=== PATIENT | male | born 1960 | race Caucasian/White ===

== ENCOUNTER 2020-11-19 14:43 | Outpatient (REF) | payer OTHER, SELFPAY ==
[2020-11-19 15:05] LABS: MANUAL DIFF FLAG NO
[2020-11-19 15:07] LABS: Basophils Absolute Auto 0.1 X10*3/uL (0.0-0.2); Basophils Percent Auto 0.6 % (0-2); Eosinophils Absolute Auto 0.2 X10*3/uL (0.0-0.4); Eosinophils Percent Auto 2.6 % (0-4); Hematocrit 49.5 % (42-52); Hemoglobin 16.6 g/dl (14.0-18.0); Imm Gran Abs Auto 0.03 X10*3/uL (0.00-0.03); Imm Gran Pct Auto 0.4 % (0.0-0.4); Lymphocytes Absolute Auto 1.9 X10*3/uL (1.2-4.9); Lymphocytes Percent Auto 21.9 % (20-40); Mean Corpuscular HGB Conc 33.5 g/dl (31.0-36.0); Mean Corpuscular Hemoglobin 30.9 pg (27.0-33.0); Mean Platelet Volume 11.8 fL (9.4-12.4); Monocytes Absolute Auto 0.7 X10*3/uL (0.1-1.2); Monocytes Percent Auto 7.8 % (2-11); Neutrophils Absolute Auto 5.7 X10*3/uL (2.0-8.3); Neutrophils Percent Auto 66.7 % (45-73); Platelet Count 185 X10*3/uL (160-400); Red Blood Count 5.38 X10*6/uL (4.60-5.80); White Blood Count 8.5 X10*3/uL (4.8-10.8)
[2020-11-19 15:29] LABS: Alanine Aminotransferase 10 U/L (0-40); Albumin Level 4.1 g/dL (3.5-5.0); Alkaline Phosphatase 65 U/L (39-117); Anion Gap 10 (12-20); Aspartate Amino Transferase 14 U/L (5-37); Bilirubin Total 0.9 mg/dL (0.0-1.0); Blood Urea Nitrogen 14 mg/dL (9-16); C Reactive Protein 0.32 mg/dL (< or = 0.50); Calcium 9.9 mg/dL (8.4-10.2); Carbon Dioxide 28 mmol/L (22-29); Chloride 106 mmol/L (96-108); Estimated Glomerular Filt Rate 50; Glucose Random 129 mg/dL (60-115); Potassium 4.1 mmol/L (3.3-5.1); Sodium 140 mmol/L (135-145); Total Protein 6.9 g/dL (6.5-8.0)
== END 2020-11-19 14:44 | disposition home or self-care (01) ==
LOC: HO.LAB 14:43
PROVIDERS: PCP Internal Medicine; Visit Provider Internal Medicine
DX: R10.32 Left lower quadrant pain (principal); I12.9 Hypertensive chronic kidney disease with stage 1 through stage 4 chronic kidney disease, or unspecified chronic kidney disease; N18.9 Chronic kidney disease, unspecified
CPT/HCPCS: 36415; 80053; 85025; 86140

== ENCOUNTER 2021-03-15 13:53 | Outpatient (REF) | payer OTHER, SELFPAY ==
[2021-03-15 14:54] LABS: Binax Internal Control QC Valid; Binax Now Covid-19 Ag Positive (Negative)
== END 2021-03-15 13:54 | disposition home or self-care (01) ==
LOC: HO.LAB 13:53
PROVIDERS: Visit Provider Internal Medicine
DX: Z20.822 Contact with and (suspected) exposure to COVID-19 (principal)
CPT/HCPCS: 36415; C9803

== ENCOUNTER 2021-05-03 16:14 | Outpatient (REF) | payer OTHER, SELFPAY ==
[2021-05-03 16:28] LABS: MANUAL DIFF FLAG NO
[2021-05-03 17:44] LABS: Basophils Absolute Auto 0.1 X10*3/uL (0.0-0.2); Basophils Percent Auto 0.7 % (0-2); Eosinophils Absolute Auto 0.4 X10*3/uL (0.0-0.4); Eosinophils Percent Auto 4.9 % (0-4); Hematocrit 50.3 % (42.0-52.0); Imm Gran Abs Auto 0.03 X10*3/uL (0.00-0.03); Imm Gran Pct Auto 0.3 % (0.0-0.4); Lymphocytes Absolute Auto 2.4 X10*3/uL (1.2-4.9); Lymphocytes Percent Auto 27.9 % (20-40); Mean Corpuscular HGB Conc 33.8 g/dl (31.0-36.0); Mean Corpuscular Hemoglobin 31.6 pg (27.0-33.0); Mean Corpuscular Volume 93.5 fL (80.0-98.0); Mean Platelet Volume 12.2 fL (9.4-12.4); Monocytes Absolute Auto 0.7 X10*3/uL (0.1-1.2); Neutrophils Absolute Auto 5.1 x10*3/uL (2.0-8.3); Neutrophils Percent Auto 58.2 % (45-73); Platelet Count 217 X10*3/uL (160-400); Red Blood Count 5.38 X10*6/uL (4.60-5.80); Red Cell Distribution Width 14.3 % (11.0-16.0); White Blood Count 8.8 X10*3/uL (4.8-10.8)
[2021-05-03 17:52] LABS: D Dimer High Sensitivity 196 NG/ML
[2021-05-03 18:11] LABS: B Type Natriuretic Peptide 35 pg/mL (<100)
[2021-05-03 18:17] LABS: Alanine Aminotransferase 13 U/L (0-40); Albumin Level 4.2 g/dL (3.5-5.0); Alkaline Phosphatase 73 U/L (39-117); Anion Gap 14 (12-20); Aspartate Amino Transferase 19 U/L (5-37); Bilirubin Total 0.9 mg/dL (0.0-1.0); Blood Urea Nitrogen 23 mg/dL (9-16); C Reactive Protein 0.24 mg/dL (< or = 0.50); Calcium 10.1 mg/dL (8.4-10.2); Carbon Dioxide 29 mmol/L (22-29); Chloride 103 mmol/L (96-108); Estimated Glomerular Filt Rate 48; Glucose Random 83 mg/dL (60-115); Potassium 4.3 mmol/L (3.3-5.1); Sodium 142 mmol/L (135-145); Total Protein 7.6 g/dL (6.5-8.0)
== END 2021-05-03 16:15 | disposition home or self-care (01) ==
LOC: HO.LAB 16:14
PROVIDERS: Visit Provider Internal Medicine
DX: R06.02 Shortness of breath (principal); I10 Essential (primary) hypertension; M10.9 Gout, unspecified; Z86.16 Personal history of COVID-19
CPT/HCPCS: 36415; 80053; 83880; 85025; 85379; 86140

== ENCOUNTER 2023-04-29 16:37 | Outpatient (REF) | payer MEDICAID, SELFPAY ==
[2023-04-29 16:51] LABS: MANUAL DIFF FLAG NO
[2023-04-29 17:43] LABS: Basophils Absolute Auto 0.1 X10*3/uL (0.0-0.2); Basophils Percent Auto 0.7 % (0-2); Eosinophils Absolute Auto 0.3 X10*3/uL (0.0-0.4); Eosinophils Percent Auto 2.4 % (0-4); Hemoglobin 16.1 g/dl (14.0-18.0); Imm Gran Abs Auto 0.02 X10*3/uL (0.00-0.03); Imm Gran Pct Auto 0.2 % (0.0-0.4); Lymphocytes Absolute Auto 2.3 X10*3/uL (1.2-4.9); Lymphocytes Percent Auto 21.9 % (20-40); Mean Corpuscular HGB Conc 34.3 g/dl (31.0-36.0); Mean Corpuscular Volume 90.4 fL (80.0-98.0); Mean Platelet Volume 12.3 fL (9.4-12.4); Monocytes Absolute Auto 0.7 X10*3/uL (0.1-1.2); Monocytes Percent Auto 6.9 % (2-11); Neutrophils Absolute Auto 7.1 x10*3/uL (2.0-8.3); Neutrophils Percent Auto 67.9 % (45-73); Platelet Count 211 X10*3/uL (160-400); Red Cell Distribution Width 13.2 % (11.0-16.0); White Blood Count 10.4 X10*3/uL (4.8-10.8)
[2023-04-29 18:13] LABS: Alanine Aminotransferase 10 U/L (0-40); Alkaline Phosphatase 69 U/L (39-117); Anion Gap 12 (12-20); Aspartate Amino Transferase 14 U/L (5-37); Bilirubin Total 0.7 mg/dL (0.0-1.0); Blood Urea Nitrogen 27 mg/dL (9-16); Calcium 9.6 mg/dL (8.4-10.2); Carbon Dioxide 29 mmol/L (22-29); Chloride 106 mmol/L (96-108); Cholesterol 228 mg/dL (<200); Estimated Glomerular Filt Rate 59; Glucose Random 128 mg/dL (60-115); Potassium 3.5 mmol/L (3.3-5.1); Sodium 143 mmol/L (135-145); Total Protein 7.2 g/dL (6.5-8.0)
[2023-04-29 18:29] LABS: Prostate Specific Antigen 2.71 ng/mL (<0.05-4.0)
[2023-04-29 18:35] LABS: Uric Acid 6.3 mg/dL (3.4-7.0)
== END 2023-04-29 16:38 | disposition home or self-care (01) ==
LOC: HO.LAB 16:37
PROVIDERS: PCP Internal Medicine; Visit Provider Internal Medicine
DX: M79.672 Pain in left foot (principal); N18.9 Chronic kidney disease, unspecified; K21.9 Gastro-esophageal reflux disease without esophagitis; Z87.39 Personal history of other diseases of the musculoskeletal system and connective tissue
CPT/HCPCS: 36415; 80053; 82465; 84153; 84550; 85025

== ENCOUNTER 2023-05-13 13:17 | Outpatient (REF) | payer MEDICAID, SELFPAY ==
--- NOTE | ~2023-05-13 | US_ITS ---
EXAMINATION: NONINVASIVE ASSESSMENT OF THE ARTERIES OF THE LEFT LOWER EXTREMITIES INCLUDING BILATERAL LOWER EXTREMITY DUPLEX. CLINICAL INFORMATION: Pain in the left foot COMPARISON: Lower extremity noninvasive exam on 01/20/2019 TECHNIQUE: duplex Doppler techniques with wave form analysis and measurement of velocities in the left common femoral, profunda femoral, superficial femoral, popliteal, tibial and peroneal arteries. The study was performed only at rest. FINDINGS: LEFT LEG: Common femoral artery: 59 cm/s, Multiphasic Profunda femoris artery: 50 cm/s, Multiphasic Superficial femoral artery (proximal): 80 cm/s, Multiphasic Superficial femoral artery (mid): 45 cm/s, Multiphasic Superficial femoral artery (distal): 38 cm/s, Multiphasic Proximal Popliteal artery: 158 cm/s, Multiphasic Mid posterior tibial artery: 46 cm/s, Multiphasic Peroneal artery: 53 cm/s, Multiphasic US/US arterial duplex LE LT IMPRESSION: No hemodynamically significant stenosis in the left lower extremity.
== END 2023-05-13 13:18 | disposition home or self-care (01) ==
LOC: HO.US 13:17
PROVIDERS: PCP Internal Medicine; Visit Provider Internal Medicine
DX: M79.672 Pain in left foot (principal)
CPT/HCPCS: 93926

== ENCOUNTER 2023-08-12 09:18 | Outpatient (REF) | payer MEDICAID, SELFPAY ==
[2023-08-12 09:43] LABS: Estimated Average Glucose 105 mg/dL; Hemoglobin A1c % 5.3 % (<6.0)
[2023-08-12 10:18] LABS: Alanine Aminotransferase 16 U/L (0-40); Albumin Level 4.1 g/dL (3.5-5.0); Alkaline Phosphatase 61 U/L (39-117); Anion Gap 12 (12-20); Aspartate Amino Transferase 17 U/L (5-37); Bilirubin Total 0.6 mg/dL (0.0-1.0); Blood Urea Nitrogen 21 mg/dL (9-16); Calcium 9.6 mg/dL (8.4-10.2); Carbon Dioxide 27 mmol/L (22-29); Chloride 107 mmol/L (96-108); Cholesterol 205 mg/dL (<200); Estimated Glomerular Filt Rate 46; Glucose Fasting 108 mg/dL (60-99); HDL Cholesterol 37 mg/dL (>40); LDL Cholesterol Calculated 137 mg/dL (<100); Potassium 4.3 mmol/L (3.3-5.1); Sodium 142 mmol/L (135-145); Total Protein 7.1 g/dL (6.5-8.0); Triglycerides 159 mg/dL (<150)
== END 2023-08-12 09:19 | disposition home or self-care (01) ==
LOC: HO.LAB 09:18
PROVIDERS: PCP Internal Medicine; Visit Provider Internal Medicine
DX: I12.9 Hypertensive chronic kidney disease with stage 1 through stage 4 chronic kidney disease, or unspecified chronic kidney disease (principal); N18.9 Chronic kidney disease, unspecified; R73.03 Prediabetes; E78.00 Pure hypercholesterolemia, unspecified
CPT/HCPCS: 36415; 80053; 80061; 83036

== ENCOUNTER → 2024-06-16 11:01 | Outpatient (BNVA) | payer MEDICAID, SELFPAY | PROVIDERS: PCP Internal Medicine; Visit Provider Internal Medicine ==

== ENCOUNTER 2024-12-01 11:14 | Outpatient (AMB) | payer MEDICARE, SELFPAY ==
--- OUTSIDE RECORDS SUMMARY | 2023-10-20 06:50 | XMS_ITS ---
Author Organization [facility] Address [address] [place] [address] Care Team Providers Care Range Mechanic Name Role Phone John (RETIRED) Yariel ANDERSON Primary Care Provide Hermes Arias [phone] REASON FOR VISIT Patient presents today for a colon screening Encounters Encounter Location Date Provider Diagnosis [facility] [address] [place] [address] 10/20/2023 Hermes Guzman Plan Of Treatment No Information Progress Notes * AVA GALARZADOB:1960 (64 yo M)Acc No.[id number]:10/20/2023 Progress Notes Patient: AVA KATE Provider: Yazan Guzman MD :1960 A ge:63 Y S ex:Male Date:10/20/2023 [facility] [facility] [facility] Pcp:Yariel Lopez (RETIRED )MD Subjective: * Chief Complaints: * 1 . Patient presents today for a colon screening. * Medical History: Objective: * Vitals: Assessment: Plan: * Treatment: * * The named appointment provid er may or may not be the originator of this progress note, and it is not deemed complete until electronically signed by the appointment provider. Sign off status: Pending * Provider: Yazan Guzman MD Date: 0 10/20/2023 Generated for Coleeni ng/Fajenniferg/eTransmitting on: 0 12/01/2024 04:17 PM EDT
--- OUTSIDE RECORDS SUMMARY | 2024-02-10 11:40 | XMS_ITS ---
Author Organization [facility] Address [address] [place] [address] Care Team Providers Care Electric Meter Technician Name Role Phone John (RETIRED) Yariel ANDERSON Primary Care Provide Hermes Arias [phone] REASON FOR VISIT COLON SCREENING Encounters Encounter Location Date Provider Diagnosis [facility] [address] [place] [address] 02/10/2024 Hermes Guzman Plan Of Treatment No Information Progress Notes * AVA GALARZADOB:1960 (64 yo M)Acc No.[id number]:02/10/2024 Progress Notes Patient: AVA KATE Provider: Yazan Guzman MD :1960 A ge:63 Y S ex:Male Date:02/10/2024 Address: [address] [facility] Pcp:Yariel Lopez (RETIRED )MD Subjective: * Chief Complaints: * 1 . COLON SCREENING. * Medical History: Objective: * Vitals: Assessment: Plan: * Treatment: * * The named appointment provid er may or may not be the originator of this progress note, and it is not deemed complete until electronically signed by the appointment provider. Sign off status: Pending * Provider: Yazan Guzman MD Date: 1 04/12/2023 Generated for Printi ng/Faxing/eTransmitting on: 0 12/01/2024 04:17 PM EDT
--- OUTSIDE RECORDS SUMMARY | 2024-06-02 06:40 | XMS_ITS ---
Author Organization [facility] Address [address] [place] [address] Care Team Providers Care Personal Computer Specialist Name Role Phone John (RETIRED) Yariel ANDERSON Primary Care Provide Hermes Arias [phone] REASON FOR VISIT Patient presents today for a COLON SCREENING Encounters Encounter Location Date Provider Diagnosis [facility] [address] [place] [address] 06/02/2024 Hermes Guzman Plan Of Treatment No Information Progress Notes * AVA GALARZADOB:1960 (64 yo M)Acc No.[id number]:06/02/2024 Progress Notes Patient: AVA KATE Provider: Yazan Guzman MD :1960 A ge:63 Y S ex:Male Date:06/02/2024 [address] [facility] Pcp:Yariel Lopez (RETIRED )MD Subjective: * Chief Complaints: * 1 . Patient presents today for a COLON SCREENING. * Medical History: Objective: * Vitals: Assessment: Plan: * Treatment: * * The named appointment provid er may or may not be the originator of this progress note, and it is not deemed complete until electronically signed by the appointment provider. Sign off status: Pending * Provider: Yazan Guzman MD Date: 0 06/02/2024 Generated for Coleeni ng/Fajenniferg/eTransmitting on: 0 12/01/2024 04:17 PM EDT
--- OUTSIDE RECORDS SUMMARY | 2024-11-03 06:00 | XMS_ITS ---
Author Organization [facility] Address [address] [place] [address] Care Team Providers Care Dextrine Mixer Name Role Phone John (RETIRED) Yariel ANDERSON Primary Care Provide Hermes Arias [phone] REASON FOR VISIT Patient presents today for a COLON SCREENING Encounters Encounter Location Date Provider Diagnosis [facility] [address] [place] [address] 11/03/2024 Hermes Guzman Plan Of Treatment No Information Progress Notes * AVA GALARZADOB:1960 (64 yo M)Acc No.[id number]:11/03/2024 Progress Notes Patient: AVA KATE Provider: Yazan Guzman MD :1960 A ge:64 Y S ex:Male Date:11/03/2024 [address] [facility] Pcp:Yariel Lopez (RETIRED )MD Subjective: * Chief [...] * Provider: Yazan Guzman MD Date: 0 11/03/2024 Generated for Coleeni ng/Fajenniferg/eTransmitting on: 0 12/01/2024 04:17 PM EDT
--- NOTE | 2024-12-01 11:06 | A.OFFPC_ITS ---
Vital Signs 12/01/24 11:20 Height 5 ft 8 in Weight 193 lb BMI 29.3 BP 157/102 H Blood Pressure Location Lt brachial Position Sitting Respiration 18 Pulse 85 Pulse Source Pulse Oximeter Temp 98.2 F Temp Source Temporal Artery Scan Pulse Oximetry (%) 98 Oxygen Delivery Method Room Air Intake Visit Reasons: F/U [facility] (comments) Supervisor Pigment Making Required: No Accompanied by: Self / Same As Patient Allergies codeine Adverse Reaction (Mild, Verified 12/01/24 12:09) Nausea Penicillins Adverse Reaction (Mild, Verified 12/01/24 12:09) Nausea Tobacco use date assessed: 12/01/24 Fall risk assessment: 1 Fall in past year Last assessed Fall Risk: 12/01/24 Dental Screening Dental Screen Date: 12/01/24 Did you have a dental visit in the last 12 months?: Yes Did you have a dental problem in the last 6 months where you did not have access to dental care?: No Was dental information given to patient?: Patient has dentist HPI HPI Comments History of Present Illness Details The patient is a 64-year-old male presenting with symptoms suggestive of a transient ischemic attack (TIA)/stroke. The episode occurred a few weeks ago when he awoke feeling disoriented, a condition he describes as unlike any disorientation he had experienced previously. During this episode, his left arm became non-functional; he was unable to move or control it. This paralysis lasted for approximately two to three hours before resolving spontaneously. Since this episode, the patient continues to experience a sensation of heaviness and persistent weakness in the left arm, which has been remarked upon by a friend due to its noticeable drooping when walking. The patient has not experienced similar episodes in the past, except for occasional alcohol-induced symptoms long ago. During the period of weakness, he attempted to speak on the phone but found himself struggling with articulation, though he is unsure of the complete extent due to living alone. He attempted to write or text with the affected arm during the episode to no avail due to significant calamitous dexterity. Continued weakness is observed in the left arm, with a friend's recent comment highlighting a persistent droop. He denies any other accidents, falls, or head trauma. The patient also mentioned a past physical examination noted a deviated uvula, suggesting a previous stroke, though he considers this speculation. His hypertension has been recorded at 150s/90s at the [facility] emergency department visit, contributing to his stroke risk along with a history of high cholesterol. Similarly, his kidney function is compromised, with chronic kidney disease stage 3 noted historically. He has ceased alcohol consumption since December and has never smoked. No family history of cardiovascular accidents is mentioned, though diabetes and prostate cancer are noted in his family history. 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 - Reports decreased physical activity du e to arthritis affecting feet, impacting exercise routine such as hiking and golfing [facility] Medical History (Updated 12/01/24 @ 12:32 by Parminder Hawk MD) CKD stage 3a, GFR 45-59 ml/min Stroke GERD with esophagitis Hypertension Hyperlipidemia Social History Housing: House Patient Tobacco Use Status: Never used Tobacco e-Cigarette/Vaping Use: Never Used Second Hand Smoke Exposure: Yes Do you have a plan to hurt others: No Plan service: No Current occupational status: employed and retired Current occupation: [email or web address] Questionnaire PHQ-9 Over the last 2 weeks, how often have you been bothered by any of the following problems? 1. Little interest or pleasure in doing things: not at all 2. Feeling down, depressed, or hopeless: not at all 3. Trouble falling or staying asleep, or sleeping too much: not at all 4. Feeling tired or having little energy: not at all 5. Poor appetite or overeating: not at all 6. Feeling bad about yourself - or that you are a failure or have let yourself or your family down: not at all 7. Trouble concentrating on things, such as reading the newspaper or watching television: not at all 8. Moving or speaking so slowly that other people could have noticed. Or the opposite - being so fidgety or restless that you have been moving around a lot more than usual: not at all 9. Thoughts that you would be better off or of hurting yourself in some way: not at all Total score: 0 Depression Screening Interpretation: Negative Depression Screening Done: Yes 08708 - PHQ-9 Billing: Yes Source: Developed by Drs. Hermes Fleming, Simona Sandoval, Jc Gonzalez and colleagues, with an educational petros from [employer]. Thrive Questionnaire Date Thrive assessed: 12/01/24 I am a: Patient What is your living situation today?: I have a steady place to live Within the past 12 months, did the food you bought not last and you didn't have the money to get more?: Never true Within the past 12 months, did you worry whether your food would run out before you got money to buy more?: Never true Do you have trouble paying for medicines?: No Do you have trouble getting transportation to medical appointments?: No Do you have trouble paying your heating and electricity bill?: No Do you have trouble taking care of your child, family member or friend?: No Do you have trouble with day-to-day activities such as bathing, preparing meals, shopping, managing finances, etc.?: No Are you currently unemployed and looking for a job?: No Are you interested in more education?: No THRIVE Score: 0 AUDIT C Alcohol Use Questionnaire (AUDIT-C) 1. How often do you have a drink containing alcohol?: Never 3. How often do you have six or more drinks on one occasion?: Never Total Score: 0 Score Reviewed/Action Taken: Yes SALAZAR-7 AMB Questionnaire SALAZAR-7 Date SALAZAR - 7 assessed: 12/01/24 Feeling nervous, anxious, or on edge: 0 = Not at all Not being able to stop or control worryin = Not at all Worrying too much about different things: 0 = Not at all Trouble relaxin = Not at all Being so restless that it is hard to sit still: 0 = Not at all Becoming easily annoyed or irritable: 0 = Not at all Feeling afraid as if something awful might happen: 0 = Not at all Total SALAZAR-7 score (0-4 normal; 5-9 mild; 10-14 moderate; 15-21 severe): 0 Source: Developed by Drs. Hermes Fleming, Simona Sandoval, Jc Gonzalez and colleagues, with an educational petros from [employer]. SALAZAR-7 Assessment Billing SALAZAR-7 Assessment Tool: SALAZAR-7 Assessment 47509 Review of Systems Const Details: - Neurological: Reports disorientation, difficulty articulating speech during episode, weakness in left arm, drooping left arm - Musculoskeletal: Denies exercise due to foot pain, reports left arm weakness - Cardiovascular: Reports history of high blood pressure - Respiratory: Denies shortness of breath - Gastrointestinal: Denies heartburn due to medication - Allergic/Immunologic: Reports past allergies including codeine and penicillin All systems reviewed & are unremarkable except as reviewed in HPI and above Physical exam (Primary Care) Vital Signs: Last Vital Signs Temp 98.2 F 12/01/24 11:20 Pulse 85 12/01/24 11:20 Resp 18 12/01/24 11:20 BP 157/102 H 12/01/24 11:20 Pulse Ox 98 12/01/24 11:20 Oxygen Delivery Method Room Air 12/01/24 11:20 BMI result Body Mass Index 29.3 Tobacco/Smoking Status: Tobacco use Status Tobacco use date assessed 12/01/24 12/01/24 11:07 Patient Tobacco Use Status Never used Tobacco 12/01/24 11:26 e-Cigarette/Vaping Use Never Used 12/01/24 11:26 Depression Screening Interpretation: Negative Const Other: General: +Alert and oriented, Well nourished, No acute distress. Eye: Pupils are equal, round and reactive to light, Intact accommodation, Extraocular movements are intact, Normal conjunctiva, Vision unchanged. HENT: Normocephalic, Atraumatic, Tympanic membranes are clear, Normal hearing, Oral mucosa is moist, No pharyngeal erythema, Ear canals patent. Respiratory: Lungs CTA bilaterally, No wheeze, Respirations are non-labored. Cardiovascular: Regular rate, Regular rhythm, S1 auscultated, S2 auscultated, No murmur, Good pulses equal in all extremities, Normal peripheral perfusion, No edema. Gastrointestinal: Soft, Non-tender, Non-distended, Normal bowel sounds, No organomegaly. Musculoskeletal: Normal range of motion, Normal strength, No tenderness, No swelling, No deformity, Normal gait. Integumentary: Warm, Dry, [place], Intact. Neurologic: Alert, Oriented, Normal sensory, Normal motor function, No focal defects, Cranial Nerves II-XII are grossly intact, Normal deep tendon reflexes. Left arm and left lower leg show weakness, 4/5 strength on the left side, 5/5 on the right. Flattening of the left side of the mouth, unable to make a full smile. Significant weakness on the left side. Psychiatric: Cooperative, Appropriate mood & affect, Normal judgment. Coding Level of Care Code New Pt Level 5 (45508) Complex EM visit Add On G2211 Diagnoses Cerebrovascular accident (CVA), unspecified mechanism I63.9 CVA mechanism: unspecified Other hyperlipidemia E78.49 Hyperlipidemia type: other hyperlipidemia Hypertension, unspecified type I10 Hypertension type: unspecified Gastroesophageal reflux disease with esophagitis without hemorrhage K21.00 Esophagitis bleeding: without hemorrhage Establishing care with new doctor, encounter for Z76.89 CKD stage 3a, GFR 45-59 ml/min N18.31 Additional Codes PHQ-9 - 96374 - PHQ-9 Billing: Yes ([id number]) SALAZAR-7 Assessment Billing - SALAZAR-7 Assessment Tool: SALAZAR-7 Assessment 09153 ([id number]) Time Spent (min) 60 Assessment & Plan Assessment & Plan (1) Stroke: Comment: - Suspected stroke symptoms discussed, likely due to high cholesterol and hypertension. - Ordered CT scan of brain and carotids and started on high dose statin. Will hold off on aspirin till imaging is seen. - Walked patient over to emergency room and hand off given to ED Physician. Code(s): I63.9 - Cerebral infarction, unspecified Category: Medical Qualifiers: CVA mechanism: unspecified Qualified Code(s): I63.9 - Cerebral infarction, unspecified (2) Hyperlipidemia: Comment: - Prior Lab work evaluated, with elevated LDL but not on any treatment - At this time given his recent TIA/Stroke, will initiate on High Intensity Statin Code(s): E78.5 - Hyperlipidemia, unspecified Category: Medical Qualifiers: Hyperlipidemia type: other hyperlipidemia Qualified Code(s): E78.49 - Other hyperlipidemia (3) Hypertension: Comment: - Pressures elevated while on Lisinopril 10. He does report when he was seen at [facility] 2 weeks ago, pressures were WNL - Will increase lisinopril dosing at next visit. Code(s): I10 - Essential (primary) hypertension Category: Medical Qualifiers: Hypertension type: unspecified Qualified Code(s): I10 - Essential (primary) hypertension (4) GERD with esophagitis: Comment: - Current medication regimen appears effective, patient denies heartburn. Code(s): K21.00 - Gastro-esophageal reflux disease with esophagitis, without bleeding Category: Medical Qualifiers: Esophagitis bleeding: without hemorrhage Qualified Code(s): K21.00 - Gastro-esophageal reflux disease with esophagitis, without bleeding (5) Establishing care with new doctor, encounter for: Code(s): Z76.89 - Persons encountering health services in other specified circumstances (6) CKD stage 3a, GFR 45-59 ml/min: Comment: - Labs reviewed with baseline creatinine at 1.3 - Will continue to monitor closely and consider nephrology evaluation in the future Code(s): N18.31 - Chronic kidney disease, stage 3a Category: Medical Plan: MDM: Suspected cerebrovascular accident in ordered CT and labs in addition to starting on high-intensity statin for prevention. Direct hand of to ED physician. Problems: Risk> 1 acute condition posing threat to life action Data: Independent discussion external physician and ordering tests Risk: High (ED transfer post hospital level evaluation) Plan During the visit, we discussed the patient's recent symptoms suggesting a transient ischemic attack. I explained the importance of immediate evaluation, including CT and MRI imaging, to assess the potential for a cerebrovascular incident, given the ongoing weakness in the left arm. I advised against the decision to leave the ED prematurely during his last visit. The necessity of managing his hypertension to prevent further vascular events was emphasized, and a high-dose statin was recommended due to elevated cardiovascular risk. I addressed the need for urgent reassessment in the ED due to persistent neurological symptoms and outlined referral plans for a neurologist follow-up. Given his history of chronic kidney disease stage 3, I discussed adjusting monitoring with caution when dealing with contrast imaging. Finally, I reinforced the importance of regular blood pressure monitoring at home. Orders: Orders Hemoglobin A1c Today E78.5 - Hyperlipidemia, unspecified, I10 - Essential (primary) hypertension, Z76.89 - Persons encountering health services in other specified circumstances Vitamin D 25-OH Total Today E78.5 - Hyperlipidemia, unspecified, I10 - Essential (primary) hypertension, Z76.89 - Persons encountering health services in other specified circumstances Complete Blood Count Auto Diff Today E78.5 - Hyperlipidemia, unspecified, I10 - Essential (primary) hypertension, Z76.89 - Persons encountering health services in other specified circumstances Comprehensive Met. Panel Today E78.5 - Hyperlipidemia, unspecified, I10 - Essential (primary) hypertension, Z76.89 - Persons encountering health services in other specified circumstances Lipid Panel Today E78.5 - Hyperlipidemia, unspecified, I10 - Essential (primary) hypertension, Z76.89 - Persons encountering health services in other specified circumstances TSH reflex Free T4 Today E78.5 - Hyperlipidemia, unspecified, I10 - Essential (primary) hypertension, Z76.89 - Persons encountering health services in other specified circumstances CT head/brain wo/w IV con Today I63.9 - Cerebral infarction, unspecified CT angio head neck Today I63.9 - Cerebral infarction, unspecified Referrals Neurology Referral I63.9 - Cerebral infarction, unspecified Medications: New 2 atorvastatin (Lipitor) 80 mg PO BEDTIME 90 tabs 3RF Patient Instructions: - Go to the emergency room right now for stroke symptoms check. - Keep taking your medicine for high blood pressure and stomach problems like usual. - Start checking your blood pressure at home and write it down. - Avoid driving until we have more information about your symptoms. - Call the emergency room beforehand and tell them about your symptoms. - Make sure to follow up with a neurologist as directed. - Stay away from alcohol and continue healthy habits.
[2024-12-01 11:20] VITALS: BP 157/102; PULSE 85; RESP 18; TEMP 36.8; O2SAT 98; BMI 29.3
--- OUTSIDE RECORDS SUMMARY | 2024-12-01 16:18 | XMS_ITS | Clinical Summary ---
Author Organization Formerly [facility] Address [address] [place] [id number] Phone Care Team Providers Care Civil Engineer Name Role Phone Yariel Lopez MD Primary Care Provider Allergies Active Allergy Reactions Criticality Noted Date Comments Penicillins 04/11/2023 Medications lisinopril (PRINIVIL,ZESTRI L) 10 MG tablet Take 1 tablet by mouth every morning. 02/10/2023 Active omeprazole (PRILOSEC) 20 MG tablet Take 20 mg by mouth daily. Active allopurinol (ZYLOPRIM) 100 MG tablet Take 100 mg by mouth daily. Active Social History Tobacco Use Types Packs/Day Years Used Date Smoking Tobacco: Never Assessed Education Answer Date Recorded Are you interested in more education? Not on ton e 04/11/2023 Are you concerned about learning? Not on file 04/11/2023 No 04/11/2023 No 04/11/2023 Digital Access Answer Date Recorded No 04/11/2023 No 04/11/2023 Reliable internet access at home? Not on file 04/11/2023 Device with a working camera? Not on file Sex and Gender Information Value Date Recorded Sex Assigned at Not on file Legal Sex Male 1:04 PM EST Gender Identity Not on file Sexual Orientation Not on file Last Filed Vital Signs Vital Sign Reading Time Taken Comments Blood Pressure 136/107 04/11/2023 1:20 PM EST Pulse 100 04/11/2023 1:20 PM EST Temperature 36.2 C (97.2 F) 04/11/2023 1:20 PM EST Respiratory Rate 20 04/11/2023 1:20 PM EST Oxygen Saturation 99% 04/11/2023 1:20 PM EST Inhaled Oxygen Concentration - - Weight 95.3 kg (210 lb) 04/11/2023 1:20 PM EST Height 175.3 cm (5' 9 ) 04/11/2023 1:20 PM EST Body Mass Index 31.01 04/11/2023 1:20 PM EST Plan of Treatment Health Maintenance Due Date Last Done Comments Adult Td,Tdap Booster 1959 CREATININE LEVEL 1959 LIPID PANEL 1959 POTASSIUM LEVEL 1959 DEPRESSION SCREENING 1971 SMOKING Hx and SMOKELESS TOBACCO SCREENING 08/12/1972 HEPATITIS C SCREENING 08/12/1977 HIV ONE-TIME SCREENING (18-6 5 YEARS) 08/12/1977 SCREENING FOR DIABETES 08/12/1994 COLOGUARD 08/12/2004 COLONOSCOPY 08/12/2004 COLORECTAL CANCER SCREENING 08/12/2004 FIT TEST 08/12/2004 FOBT 08/12/2004 SIGMOIDOSCOPY 08/12/2004 VIRTUAL COLONOSCOPY 08/12/2004 PNEUMOCOCCAL VACCINES (50+ years) (1 of 1 - PCV) 08/12/2009 ZOSTER VACCINES (1 of 2) 08/12/2009 INFLUENZA VACCINE (#1) 2024 COVID-19 VACCINE (3 - 2024-2 6 season) 2024 07/10/2020, 06/18/2020 RSV VACCINE (1 - 1-dose 75+ series) 08/12/2034 HEPATITIS A VACCINES Aged Out No long er eligible based on patient's age to complete this topic HIB VACCINES Aged Out No longer eligi ble based on patient's age to complete this topic MENINGOCOCCAL VACCINES (ACWY) Aged Out No longer eligible based on patient's age to complete this topic MENINGOCOCCAL VACCINES (B) Aged Out N o longer eligible based on patient's age to complete this topic Medical Devices Not on file Insurance [facility] Care Teams Civil Engineer Relationship Specialty Start Date End Date Yariel Lopez MD [address] [place] [address] [place] [address] PCP - General Internal Medicine 04/11/23 Additional Source Comments The information contained in this document represents components of the legal health record. It is not the complete legal health record.Formerly [facility]
--- OUTSIDE RECORDS SUMMARY | 2024-12-01 16:18 | XMS_ITS | Patient Health Record ---
Author Organization [facility] Address [address] [place] [address] Care Team Providers Care Staff Forester Name Role Phone John (RETIRED) Yariel ANDERSON Primary Care Provide r Unavailable Hermes Guzman Unavailable [phone] Reason For Referral No Information Medications Medication SIG (Take, Route, Fr equency, Duration) Notes Start Date End Date Status Cialis Active Allopurinol 100 MG TK 2 TS PO QD Oral for 30 Active Lisinopril 10 MG 1 tablet Orally Once a day Active Omeprazole 20 MG 2 tablet Oral Once a day Active Immunizations Vaccine Route Administration Date Status Comme nts Influenza Unknown 08/03/2019 Refused Social History Alcohol Screen Question Answer Notes Did you have a drink contain ing alcohol in the past year? Yes How often did you have a dri nk containing alcohol in the past year? 2 to 3 times a week (3 points) How many drinks did you have on a typical day when you were drinking in the past year? 3 or 4 drinks (1 point) How often did you have 6 or more drinks on one occasion in the past year? 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 Problem 238104824 Gastroesophageal reflux disease, esophagitis presence not specified (K21.9) Active confirmed Problem 92980677 Coffee ground em esis (K92.0) Active confirmed Encounters Encounter Location Date Provider Diagnosis [facility] [address] [place] [address] 02/08/2024 Hermes Megan [facility] [address] [place] [address] 06/01/2024 Hermes Guzman [facility] [address] [place] [address] 11/02/2024 Hermes Guzman Plan Of Treatment Future Test Test Name Order Date UPPER GI ENDOSCOPY 04/21/2014 COLONOSCOPY 04/21/2014 UPPER GI ENDOSCOPY 08/03/2019 Medical (General) History Medical History History ICD Code HTN Denies NM,DM,CVA,Lung disease,renal dise ase EGD and Colonoscopy at age 49 [address] Steven simpson--reports that these were negative GERD-EGD [id number] ed HH, small area of Recinos's without dysplasia, no esophagitis; normal duodenal biopsies Anxiety Gout Colonoscopy 05/2014-negative Surgical History Surgery Date(Month/Year) knee surgery nose surgery
== END 2024-12-01 12:34 | disposition home or self-care (01) ==
LOC: HO.HMCHD 11:15
PROVIDERS: PCP Student in an Organized Health Care Education/Training Program; Visit Provider Student in an Organized Health Care Education/Training Program
DX: I63.9 Cerebral infarction, unspecified (principal); E78.49 Other hyperlipidemia; I10 Essential (primary) hypertension; K21.00 Gastro-esophageal reflux disease with esophagitis, without bleeding; Z76.89 Persons encountering health services in other specified circumstances; N18.31 Chronic kidney disease, stage 3a

== ENCOUNTER 2024-12-01 11:58 | Inpatient (IN) | payer MEDICARE, SELFPAY ==
--- NOTE | ~2024-12-01 | MR_ITS ---
CLINICAL HISTORY: left facial droop MR Brain without gadolinium Comparison: CT/SR - CT HEAD NECK ANGIOGRAPHY WITH IV CONTRAST - 12/01/24 13:37 EDT Findings: No restricted diffusion. No intra-axial mass or hemorrhage. Angela and mesencephalon multiple lacunar foci of encephalomalacia. Right putamen lacunar encephalomalacia. No midline shift. No hydrocephalus. Vascular flow voids are intact. Orbital contents are unremarkable. Near-complete opacification of the right maxillary sinus. No focal bone lesion. Periventricular foci of increased T2 FLAIR signal. No acute ischemic event identified in DWI sequence. IMPRESSION: 1. No acute intracranial findings. 2. Multiple lacunar foci of encephalomalacia in angela, mesencephalon, and and single in the right putamen. 3. Periventricular microvascular ischemic disease. Multiple sclerosis has not been excluded. Clinical correlation suggested. 4. Right maxillary sinus disease. This document has been electronically signed by: Wan Hammond MD on 12/01/2024 20:25:29
--- NOTE | ~2024-12-01 | CT_ITS ---
EXAMINATION: CTA NECK WITH CONTRAST (STROKE) CTA BRAIN WITH CONTRAST (STROKE) CLINICAL INFORMATION: Stroke like symptoms. COMPARISON: Correlated to ultrasound carotid Doppler dated January 20, 2019. TECHNIQUE: CTA of the head and neck was performed in the axial plane from the mediastinum to the skull vertex using 70 mL Omnipaque 350 intravenous contrast. Additional reformatted multiplanar images including maximum intensity projection MIP images are generated on the CT workstation. This CT examination was performed using dose optimization techniques as appropriate, variously including the following: *Automated exposure control *Adjustment of mA and/or kV according to patient size (this includes techniques or standardized protocols for targeted exams where dose is matched to indication/reason for exam; i.e. extremities or head) *Use of iterative reconstruction technique DLP: 1482 mGy centimeter. FINDINGS: The degree of stenosis determined by criteria similar to NASCET. Brain: No acute intracranial hemorrhage, mass effect, midline shift, hydrocephalus or herniation. Bilateral multifocal patchy and confluent subcortical and deep periventricular white matter hypodensities involving centrum semiovale and torres radiata. Multifocal old lacunar infarcts, right basal ganglia and left cingulate gyrus. Probable old lacunar infarct in the jason. Ward-white matter differentiation is normal. No gross abnormal enhancement in the intra-axial or the extra-axial compartment of the cranium. No acute fracture in the bony calvarium. Polypoid mucosal thickening and secretions, right maxillary sinus. Small retention cyst right ethmoid air cells. Pneumatized anterior clinoid processes, bilaterally. Tympanic cavities and mastoid cells are aerated. Pneumatized right petrous apex. Chest CTA: Normal enhancement pattern and caliber included aortic arch. No intimal flap. Neck CTA: Right CCA: Normal patency. No focal stenosis. No intimal flap. Right ICA: Retropharyngeal trajectory and tortuosity. Normal patency. No focal stenosis. No intimal flap. Left CCA: Tortuosity in the proximal segment. Normal patency. No focal stenosis. No intimal flap. Left ICA: Retropharyngeal trajectory. Normal patency. No focal stenosis. No intimal flap. V1/V2 segments: Tortuosity. Normal patency. No focal stenosis. No intimal flap. Origin from the subclavian arteries. Left vertebral artery slightly dominant. Brain CTA: Anterior cerebral circulation: ICAs: Normal patency. No focal stenosis. No abrupt cut off. ICA terminus is normal bilaterally. MCA's: Normal patency. No focal stenosis. No abrupt cut off. Bifurcation/trifurcation demonstrated no vascular irregularity. ACAs: Normal patency. No focal stenosis. No abrupt cut off. Anterior communicating artery is patent without vascular irregularity. Ophthalmic arteries are patent without vascular irregularity at the origin. Right posterior communicating artery is patent without gross irregularity there is a prominent infundibulum at the origin. Left posterior communicating artery is small and the origin is no fully evaluated. Posterior cerebral circulation: V3/V4 segments: Normal patency. No focal stenosis. No intimal flap. Left is dominant. Posterior inferior cerebellar arteries are patent without gross irregularity at the origin. Dolichoectatic basilar artery. Normal patency. No focal stenosis. No intimal flap. Superior cerebellar arteries are patent. kennel assistant: 2 focal high degree stenosis with reconstitution of the right P1 P2 segment. Moderate focal stenosis in the left P1 segment. CT/CT angio head neck IMPRESSION: High degree stenosis, right P1 and right P2 segments. Moderate degree stenosis, left P1 segment. No main cerebral artery occlusion or embolus. No dissection or high-grade stenosis in the vessels of the neck. This critical test result is communicated to: Dr. Brayden Burk in the emergency department via [employer] at 2:28 PM on December 01, 2024. Electronically signed by: Anish Valentine MD 12/01/2024 02:41 PM EDT
[2024-12-01 12:08] VITALS: BP 191/98; PULSE 85; RESP 16; TEMP 36.8; O2SAT 98; BMI 29.2
--- NOTE | 2024-12-01 12:08 | ED.NEUROSD ---
HPI - Neuro Symptoms/Deficit General Chief Complaint: Neuro Symptoms/Deficit Stated Complaint: stroke symptoms, sent by PCP Time Seen by Provider: 12/01/24 12:08 Source: patient, family (Son at bedside), RN notes reviewed and old records reviewed Mode of arrival: ambulatory Limitations: no limitations History of Present Illness ED Provider: ALIREZA Alvarenga HPI Narrative: 64-year-old male with medical history of HLD, HTN, GERD, CKD stage 3 presents to the ED due to stroke-like symptoms. Patient states he woke up approximately 3 weeks ago on 11/12/2024 and felt profoundly confused, patient states he was not able to comprehend the TV or the noise around him. Patient then noticed he was unable to move the left arm at all when trying to text a friend. Patient then reports he tried to call a friend and was unable to speak. Patient states these symptoms lasted for a few hours before dissipating. Patient went to [facility] this past Thursday on 11/26/2024 and left without being seen due to extremely long waiting time. Patient went to his primary care doctor today and told them what happened, PCP directed patient to ED for further evaluation. Patient states all symptoms except for left-sided weakness has resolved at this time. Related Data Home Medications ?Medication ?Instructions ?Recorded ?Confirmed omeprazole 20 mg tablet,delayed 20 mg PO BID 10/27/24 release Previous Rx's ?Medication ?Instructions ?Recorded lisinopril 10 mg tablet 10 mg PO DAILY #90 tabs 06/10/24 atorvastatin 80 mg tablet (Lipitor) 80 mg PO BEDTIME #90 tabs 12/01/24 Allergies Allergy/AdvReac Type Severity Reaction Status Date / Time codeine AdvReac Mild Nausea Verified 12/01/24 12:09 Penicillins AdvReac Mild Nausea Verified 12/01/24 12:09 Review of Systems Review of Systems: CONST: Negative for fever, body aches and chills. HENT: Negative for neck pain/stiffness, headache, congestion, sore throat, swelling. EYES: Negative for discharge/pain or vision changes. RESP: Negative for cough/hemoptysis and shortness of breath. CV: Negative chest pain, difficulty breathing, palpitations. ABD: Negative pain, nausea, vomiting. : Negative increase frequency, dysuria, blood in urine or stool. MUSC: Negative for muscle aches, edema. SKIN: Negative rash, lesions/sores. NEURO: Negative headache, dizziness. POS L sided arm and face weakness Yes all other systems are reviewed and are negative [facility] Past Medical History Attestation statement: The following information was validated with the patient. Source: old records reviewed and nursing notes reviewed Medical History CKD stage 3a, GFR 45-59 ml/min Stroke GERD with esophagitis Hypertension Hyperlipidemia Social History Social History Housing: House Patient Tobacco Use Status: Never used Tobacco Smoked in Last 30 Days: No e-Cigarette/Vaping Use: Never Used Second Hand Smoke Exposure: Yes Use of substances other than those prescribed or required for medical reasons: No Advance Directives: No Advance Directives Information Provided: Yes Do you have a plan to hurt others: No Plan service: No Current occupational status: employed and retired Current occupation: [employer] Physical Exam Vital Signs: Vital Signs: Last Vital Signs Temp 98.2 F 12/01/24 12:08 Pulse 72 12/01/24 14:16 Resp 16 12/01/24 14:16 BP 129/102 H 12/01/24 14:16 Pulse Ox 97 12/01/24 14:16 O2 Del Method Room Air 12/01/24 14:16 BMI result Body Mass Index 29.2 GENERAL APPEARANCE: ?AxOx4, generally well-appearing, no acute distress. HEENT: ?NC, AT. MMM. EOMI, clear conjunctiva, oropharynx clear. NECK: ?Supple without lymphadenopathy.? No stiffness or restricted ROM. HEART:? Normal rate and regular rhythm, normal S1/S2, no m/r/g LUNGS:? CTAB, moving air well. No crackles or wheezes are heard. ABDOMEN: ?Soft, nontender, nondistended with good bowel sounds heard. BACK: No CVAT, no obvious deformity. EXTREMITIES: ?Without cyanosis, clubbing or edema. NEUROLOGICAL: Mild decrease in strength of upper L extremity 4/5, strength of R upper extremity 5/5, mild facial droop when smiling. Alert and oriented, moving all 4 extremities. Observed to ambulate with normal gait. Skin: ?Warm and dry without any rash. Course Course Course Narrative: This is an RME: Additional HPI, ROS, PE not included below will be deferred to primary provider. RME assessment and note performed by: Martha Barrett PA-C This is a 64-year-old male, with a past medical history of CKD, GERD, hypertension, and hyperlipidemia, who presents emergency department with concerns of left sided facial droop, weakness, gait instability since 11/12. Went to [facility] on 11/26 - [facility]. Patient's blood pressure elevated at 191/98. Patient with left-sided facial droop. He also does have slight left-sided shoulder weakness. Patient ambulatory. Patient immediately brought back to the main emergency department. Given that he is greater than 2 weeks out from initial onset of his symptoms, stroke protocol was not initiated, however will obtain labs, CT head and neck, further ER evaluation needed. Medications Administered Generic Name Dose Route Start Last Admin Trade Name Freq PRN Reason Stop Dose Admin Potassium Chloride 10 meq in 100 mls @ 100 mls/hr 12/01/24 13:45 12/01/24 15:38 Potassium Chloride/H20 IV 12/01/24 17:44 100 mls/hr Q1H ORLIN Administration Discontinued Medications Generic Name Dose Route Start Last Admin Trade Name Freq PRN Reason Stop Dose Admin Aspirin 325 mg 12/01/24 15:51 12/01/24 15:57 Aspirin 325 Mg Tablet PO 12/01/24 15:52 325 mg ONCE ONE Administration Iohexol 100 ml 12/01/24 14:11 12/01/24 14:12 Iohexol 350 Mg/Ml 100 Ml Infus..Btl IV 12/01/24 14:12 70 ml ONCE ONE Administration Medical Decision Making Medical Decision Making MDM Narrative: 64-year-old male with medical history of HLD, HTN, GERD, CKD stage 3 woke up approximately 3 weeks ago on 11/12/2024 profoundly confused and unable to understand the noises around him, left-sided arm paralysis, dysarthria that lasted for a few hours before resolving. Patient has persistent mild left-sided upper extremity, and facial weakness. PCP sent him to ED today for further evaluation. NIHSS scale of 3 due to minor facial paralysis of the left side when smiling. Strength is 4/5 of the L upper extremity, 5/5 of R upper extremity. No speech slurring, no pronator drift, ambulating without ataxic gait, no dysarthria. Labs reviewed and reveal hypokalemia at 2.8. Patient being repleted with 40 mEq over 4 hours IV potassium. CTA head neck reveals significant stenosis of the right P1 and right P2 segment, with moderate stenosis of the left P1 segment- patient medicated with 325mg aspirin I reached out to stroke nurse RN Zoe Estevez who recommended admission to medicine. I reached out to Hospitalist Dr. Camacho Vizcarra for admission Differential Diagnosis Differential Diagnoses: The differential diagnosis associated with the presentation includes ICH Stroke Electrolyte abnormality Dysrhythmia Admission/Observation Consideration of admission/observation: Escalation of care including admission/observation considered Lab Data MDM Lab Attestation statement: I reviewed the patient's lab results. 12/01/24 12:44 12/01/24 12:44 Labs: Lab Results 12/01/24 Range/Units 12:44 WBC 8.4 (4.8-10.8) X10*3/uL RBC 4.97 (4.60-5.80) X10*6/uL Hgb 15.2 (14.0-18.0) g/dl Hct 43.7 (42.0-52.0) % MCV 87.9 (80.0-98.0) fL MCH 30.6 (27.0-33.0) pg MCHC 34.8 (31.0-36.0) g/dl RDW 14.5 (11.0-16.0) % Plt Count 173 (160-400) X10*3/uL MPV 12.7 H (9.4-12.4) fL Immature Gran % (Auto) 0.2 (0.0-0.4) % Neut % (Auto) 60.2 (45-73) % Lymph % (Auto) 28.6 (20-40) % [place] % (Auto) 7.6 (2-11) % Eos % (Auto) 2.4 (0-4) % Baso % (Auto) 1.0 (0-2) % Lymph # (Auto) 2.4 (1.2-4.9) X10*3/uL [place] # (Auto) 0.6 (0.1-1.2) X10*3/uL Eos # (Auto) 0.2 (0.0-0.4) X10*3/uL Baso # (Auto) 0.1 (0.0-0.2) X10*3/uL Abs Immat Gran (auto) 0.02 (0.00-0.03) X10*3/uL Absolute Neuts (auto) 5.1 (2.0-8.3) x10*3/uL Absolute Nucleated RBC 0.000 (0.0-0.012) X10*3/uL Nucleated RBC % (auto) 0.0 (0.0-0.2) /100WBC PT 13.2 H (10.9-12.4) SEC INR 1.2 H (0.9-1.1) Sodium 142 (135-145) mmol/L Potassium 2.8 L* D (3.3-5.1) mmol/L Chloride 101 (96-108) mmol/L Carbon Dioxide 32 H (22-29) mmol/L Anion Gap 12 (12-20) BUN 24 H (9-16) mg/dL Creatinine 1.26 (0.5-1.4) mg/dL Estim Creat Clear Calc 62.7 Estimated GFR 57 Random Glucose 102 (60-115) mg/dL Calcium 9.5 (8.4-10.2) mg/dL Magnesium 2.1 (1.6-2.6) mg/dL Total Bilirubin 1.0 (0.0-1.0) mg/dL AST 30 (5-37) U/L ALT 16 (0-40) U/L Alkaline Phosphatase 59 (39-117) U/L Troponin I High Sens < 2.7 (<3.5-35.0) ng/L Total Protein 6.8 (6.5-8.0) g/dL Albumin 4.1 (3.5-5.0) g/dL Independent Interpretation I performed an independent interpretation of an: CT Scan Interpretation: I independently interpreted the CTA head/neck which reveals stenosis of right P1 and right P2, left P1, I agree with the radiologist's interpretation Radiology Impression Discussion of test interpretation with radiology: I have reviewed the radiologist's reading. Radiologist Impression: CTA head/neck FINDINGS: The degree of stenosis determined by criteria similar to NASCET. Brain: No acute intracranial hemorrhage, mass effect, midline shift, hydrocephalus or herniation. Bilateral multifocal patchy and confluent subcortical and deep periventricular white matter hypodensities involving centrum semiovale and torres radiata. Multifocal old lacunar infarcts, right basal ganglia and left cingulate gyrus. Probable old lacunar infarct in the jason. Ward-white matter differentiation is normal. No gross abnormal enhancement in the intra-axial or the extra-axial compartment of the cranium. No acute fracture in the bony calvarium. Polypoid mucosal thickening and secretions, right maxillary sinus. Small retention cyst right ethmoid air cells. Pneumatized anterior clinoid processes, bilaterally. Tympanic cavities and mastoid cells are aerated. Pneumatized right petrous apex. Chest CTA: Normal enhancement pattern and caliber included aortic arch. No intimal flap. Neck CTA: Right CCA: Normal patency. No focal stenosis. No intimal flap. Right ICA: Retropharyngeal trajectory and tortuosity. Normal patency. No focal stenosis. No intimal flap. Left CCA: Tortuosity in the proximal segment. Normal patency. No focal stenosis. No intimal flap. Left ICA: Retropharyngeal trajectory. Normal patency. No focal stenosis. No intimal flap. V1/V2 segments: Tortuosity. Normal patency. No focal stenosis. No intimal flap. Origin from the subclavian arteries. Left vertebral artery slightly dominant. Brain CTA: Anterior cerebral circulation: ICAs: Normal patency. No focal stenosis. No abrupt cut off. ICA terminus is normal bilaterally. MCA's: Normal patency. No focal stenosis. No abrupt cut off. Bifurcation/trifurcation demonstrated no vascular irregularity. ACAs: Normal patency. No focal stenosis. No abrupt cut off. Anterior communicating artery is patent without vascular irregularity. Ophthalmic arteries are patent without vascular irregularity at the origin. Right posterior communicating artery is patent without gross irregularity there is a prominent infundibulum at the origin. Left posterior communicating artery is small and the origin is no fully evaluated. Posterior cerebral circulation: V3/V4 segments: Normal patency. No focal stenosis. No intimal flap. Left is dominant. Posterior inferior cerebellar arteries are patent without gross irregularity at the origin. Dolichoectatic basilar artery. Normal patency. No focal stenosis. No intimal flap. Superior cerebellar arteries are patent. livestock buyer: 2 focal high degree stenosis with reconstitution of the right P1 P2 segment. Moderate focal stenosis in the left P1 segment. CT/CT angio head neck IMPRESSION: High degree stenosis, right P1 and right P2 segments. Moderate degree stenosis, left P1 segment. No main cerebral artery occlusion or embolus. No dissection or high-grade stenosis in the vessels of the neck. This critical test result is communicated to: Dr. Brayden Burk in the emergency department via tiger connect at 2:28 PM on December 01, 2024. Electronically signed by: Anish Valentine MD 12/01/2024 02:41 PM EDT RP Dictated By: Anish Reece MD Signed By: <Electronically signed by Anish Huffman MD in OV> 12/01/24 1441 Independent Historian Clinical information obtained from an independent historian. History obtained from or confirmed by: Other (Son at bedside corroborating history) External Record Review External record reviewed: Inpatient record, Office record and Outpatient record Chronic Conditions Patient?s care impacted by: Hypertension and Other (HLD, GERD, CKD stage 3 ) NIH Stroke Scale Internal: Initial- Upon Arrival Level of Consciousness: Alert Level of Consciousness Questions: Answers both questions correctly Level of Consciousness Commands: Performs both tasks correctly Best Gaze: Normal Visual: No visual loss Facial Palsy: Minor paralyis (drooping of L side of mouth when smiling) Motor Arm (Right): No drift Motor Arm (Left): Some effort against gravity Motor Leg (Right): No drift Motor Leg (Left): No drift Limb Ataxia: Absent Sensory: Normal Best Language: No aphasia Dysarthia: Normal Extinction and Inattention: No abnormality Score: 3 Critical Care Time Critical Care Time Total Critical Care Time: 63 Attestation: I personally provided 63 minutes of critical care time for this patient with significant stenosis of right P1 and P2, a left P2, and hypokalemia of 2.8 requiring IV repletion. Discharge Plan Discharge Clinical Impression: Hypokalemia, Weakness Prescriptions: No Action lisinopril 10 mg tablet 10 mg PO DAILY Qty: 90 3RF omeprazole 20 mg tablet,delayed release (DR/EC) 20 mg PO BID atorvastatin [Lipitor] 80 mg tablet 80 mg PO BEDTIME Qty: 90 3RF Print Language: Indonesian
--- NOTE | 2024-12-01 12:29 | ECG_ITS ---
Test Reason : STROKE Blood Pressure : */* mmHG Vent. Rate : 82 BPM Atrial Rate : 82 BPM P-R Int : 202 ms QRS Dur : 90 ms QT Int : 410 ms P-R-T Axes : 21 -59 4 degrees QTcB Int : 479 ms Sinus rhythm with Premature atrial complexes Left anterior fascicular block Inferior-posterior infarct , age undetermined Abnormal ECG No previous ECGs available Referred By: Chrissie Alvarenga Electronically Signed By: Sebastian Munoz
[2024-12-01 12:31] VITALS: BP 150/108; PULSE 96; RESP 14; O2SAT 100
--- NOTE | 2024-12-01 12:35 | PC.NURSE ---
64 M presents to ED after seeing PCP. sts weeks ago woke up with confusion, left sided weakness ongoing, never seen. Stength equal bilat, some facial droop to left. A+Ox4, speech clear. RR even and unlabored, denies CP or SOB. Pt ambulates without devices but sts left side feels weaker than right.
[2024-12-01 12:48] LABS: MANUAL DIFF FLAG NO
[2024-12-01 12:51] LABS: Hematocrit 43.7 % (42.0-52.0); Hemoglobin 15.2 g/dl (14.0-18.0); Imm Gran Abs Auto 0.02 X10*3/uL (0.00-0.03); Imm Gran Pct Auto 0.2 % (0.0-0.4); Lymphocytes Absolute Auto 2.4 X10*3/uL (1.2-4.9); Mean Corpuscular HGB Conc 34.8 g/dl (31.0-36.0); Mean Corpuscular Hemoglobin 30.6 pg (27.0-33.0); Mean Corpuscular Volume 87.9 fL (80.0-98.0); NRBC Abs Auto 0.000 X10*3/uL (0.0-0.012); NRBC Pct Auto 0.0 /100WBC (0.0-0.2); Platelet Count 173 X10*3/uL (160-400); Red Blood Count 4.97 X10*6/uL (4.60-5.80); White Blood Count 8.4 X10*3/uL (4.8-10.8)
[2024-12-01 13:00] LABS: INTERNATIONAL NORM RATIO 1.2 (0.9-1.1); Prothrombin Time 13.2 SEC (10.9-12.4)
[2024-12-01 13:12] LABS: Troponin-I High Sensitivity < 2.7 ng/L (<3.5-35.0)
[2024-12-01 13:15] LABS: Alanine Aminotransferase 16 U/L (0-40); Albumin Level 4.1 g/dL (3.5-5.0); Alkaline Phosphatase 59 U/L (39-117); Anion Gap 12 (12-20); Aspartate Amino Transferase 30 U/L (5-37); Blood Urea Nitrogen 24 mg/dL (9-16); Calcium 9.5 mg/dL (8.4-10.2); Carbon Dioxide 32 mmol/L (22-29); Chloride 101 mmol/L (96-108); Creatinine Clr Calc Pharmacy 62.7; Estimated Glomerular Filt Rate 57; Magnesium 2.1 mg/dL (1.6-2.6); Potassium 2.8 mmol/L (3.3-5.1); Sodium 142 mmol/L (135-145); Total Protein 6.8 g/dL (6.5-8.0)
[2024-12-01] MEDS: iohexoL 350 MG/ML 100 ML INFUS..BTL IV (14:12)
[2024-12-01 14:16] VITALS: BP 129/102; PULSE 72; RESP 16; O2SAT 97
[2024-12-01] MEDS: Potassium Chloride/H20 10 MEQ/100 ML PIGGYBACK 100 MEQ IV ×4 (14:25→17:51)
--- NOTE | 2024-12-01 14:30 | PC.NURSE ---
fluids slowed d/t pt complaining of burning, set to 80ml/hr
--- NOTE | 2024-12-01 14:40 | PC.NURSE ---
got ok from provider to run potassium with normal saline, 500ml normal saline run slowly with potassium to prevent c/o burning from potassium infusion
[2024-12-01 16:14] VITALS: BP 162/100; PULSE 79; RESP 13; TEMP 36.6; O2SAT 99
--- NOTE | 2024-12-01 16:59 | PM.IMHP ---
History of Present Illness Date of Service: 12/01/24 Attending physician on admission: Camacho Vizcarra Chief Complaint: left side facial weakness This is a 64-year-old male with history of hypertension who was sent to the emergency department by his PCP due to left-sided facial droop. Patient states 2 weeks ago he woke up feeling confused and did not know where he was. At the same time he noticed that he could not use his left arm which is his dominant arm. He tried calling a friend but he was unable to talk and the words that he could get out sounded funny. He took a nap and then when he woke up, he was no longer confused and his speech was back to normal. It seems that his left arm has remained weaker than the right, with ambulating he has been holding his arm against his side and he has not been holding his water bottle in his left hand like he usually does. Today he had a an appointment with his primary care provider who noticed he had left-sided facial droop and sent him to the emergency department for evaluation. Head and neck CTA done in the emergency department showed high-grade stenosis of the right P1 and right P2 segments of the CERTIFIED WELLNESS PROGRAM COORDINATOR and moderate stenosis of the left P1 segment. There was no dissection or high-grade stenosis in the neck vessels. Review of Systems Review of Systems: Yes all other systems are reviewed and are negative Constitutional: Constitutional: Denies chills and Denies fever(s) Cardiovascular: Cardiovascular: Denies chest pain, Denies palpitations and Denies dyspnea Respiratory: Respiratory: Denies cough and Denies dyspnea Endocrine: Endocrine: Denies palpitations [facility] Medical History CKD stage 3a, GFR 45-59 ml/min Stroke GERD with esophagitis Hypertension Hyperlipidemia Social History Housing: House Patient Tobacco Use Status: Never used Tobacco Smoked in Last 30 Days: No e-Cigarette/Vaping Use: Never Used Second Hand Smoke Exposure: Yes Use of substances other than those prescribed or required for medical reasons: No Advance Directives: No Advance Directives Information Provided: Yes Do you have a plan to hurt others: No Plan service: No Current occupational status: employed and retired Current occupation: [employer] Allergies Allergy/AdvReac Type Severity Reaction Status Date / Time codeine AdvReac Mild Nausea Verified 12/01/24 12:09 Penicillins AdvReac Mild Nausea Verified 12/01/24 12:09 Active Medications: Current Medications Potassium Chloride (Potassium Chloride/H20) 10 meq in 100 mls @ 100 mls/hr IV Q1H ORLIN Stop: 12/01/24 17:44 Last Admin: 12/01/24 16:35 Dose: 100 mls/hr Home Medications ?Medication ?Instructions ?Recorded ?Confirmed ?Last Taken ?Type omeprazole 20 mg tablet,delayed 20 mg PO BID 10/27/24 Unknown History release Physical Exam Vital Signs and Narrative: Vital Signs: Last Vital Signs Temp 97.9 F 12/01/24 16:14 Pulse 79 12/01/24 16:14 Resp 13 12/01/24 16:14 BP 162/100 H 12/01/24 16:14 Pulse Ox 99 12/01/24 16:14 O2 Del Method Room Air 12/01/24 16:14 BMI result Body Mass Index 29.2 Const: General: cooperative, comfortable, no acute distress, alert and awake Nutritional Appearance: average body habitus Orientation/consciousness: patient oriented x3 Resp: Effort & Inspection: normal respiratory effort, able to speak in complete sentences, no respiratory distress and no use of accessory muscles Cardio: Rate: regular rate GI: Palpation (GI): Soft to palpation Neuro: Other: left facial droop; mild left arm weakness General: patient oriented x3 Results Labs 12/01/24 12:44 12/01/24 12:44 Labs: Laboratory Results - last 24 hr 12/01/24 12:44 MCV 87.9 MCH 30.6 MCHC 34.8 RDW 14.5 Plt Count 173 MPV 12.7 H Immature Gran % (Auto) 0.2 Neut % (Auto) 60.2 Lymph % (Auto) 28.6 Graham % (Auto) 7.6 Eos % (Auto) 2.4 Baso % (Auto) 1.0 Lymph # (Auto) 2.4 Graham # (Auto) 0.6 Eos # (Auto) 0.2 Baso # (Auto) 0.1 Abs Immat Gran (auto) 0.02 Absolute Neuts (auto) 5.1 Absolute Nucleated RBC 0.000 Nucleated RBC % (auto) 0.0 PT 13.2 H INR 1.2 H Anion Gap 12 Estim Creat Clear Calc 62.7 Estimated GFR 57 Random Glucose 102 Calcium 9.5 Magnesium 2.1 Total Bilirubin 1.0 AST 30 ALT 16 Alkaline Phosphatase 59 Troponin I High Sens < 2.7 Total Protein 6.8 Albumin 4.1 Imaging Radiologist's Impressions: Impressions Head/Neck CTA 12/01/24 13:37 IMPRESSION: High degree stenosis, right P1 and right P2 segments. Moderate degree stenosis, left P1 segment. No main cerebral artery occlusion or embolus. No dissection or high-grade stenosis in the vessels of the neck. This critical test result is communicated to: Dr. Brayden Burk in the emergency department via [employer] at 2:28 PM on December 01, 2024. Electronically signed by: Anish Valentine MD 12/01/2024 02:41 PM EDT RP Assessment and Plan (1) Hypertension: Qualifiers: Hypertension type: unspecified Qualified Code(s): I10 - Essential (primary) hypertension Status: Acute (2) Stroke: Qualifiers: CVA mechanism: unspecified Qualified Code(s): I63.9 - Cerebral infarction, unspecified Status: Acute (3) Hypokalemia: Status: Acute Plan This is a 64-year-old male with a history of hypertension, CKD 3, borderline hyperlipidemia not on medication who was sent to the emergency department from PCP office due to persistent left arm weakness and left facial droop Left facial droop, left arm weakness Concerning for stroke Symptoms ongoing for 2 weeks, out of the window for tPA CT head and neck showing high-grade stenosis in the right CERTIFIED WELLNESS PROGRAM COORDINATOR Plan for Neurology consult, neuro checks, brain MRI, PT/OT evaluation, echocardiogram Check lipid profile will start baby aspirin, statin Blood pressure control-patient states he has white coat hypertension, blood pressure usually well controlled. monitor blood pressure closely Hypokalemia magnesium 2.1 replaced in ED follow BMP CKD3 renal function at baseline dvt ppx - heparin Quality Stroke Does the patient have a stroke diagnosis?: No VTE Prior VTE?: No VTE Risk Level:: Medical - moderate - high VTE Device Contraindication: N/A - Device Ordered VTE Drug Contraindication: N/A - Med Ordered
--- NOTE | 2024-12-01 17:09 | MHC.EDTECH ---
@[phone] patient used call diaz to inform this tech that his fluids finished, RN made aware
[2024-12-01 17:32] LABS: Cholesterol 205 mg/dL (<200); HDL Cholesterol 33 mg/dL (>40); Triglycerides 87 mg/dL (<150)
--- NOTE | 2024-12-01 17:33 | PHA.MEDREC ---
Addendum entered by Gina Sumner RPh 12/01/24 17:38: REVIEWED BY [facility] Original Note: Pharmacy Consult ? Medication Reconciliation Pharmacy has completed the medication reconciliation. Spoke with pt and he confirmed his medications. Pt confirmed he has not picked up/started the Atorvastatin that was prescribed to him today (12/01).
--- NOTE | 2024-12-01 18:26 | PC.NURSE ---
mri screening form done and faxed over
--- NOTE | 2024-12-01 18:31 | HO.NURTONUR ---
64 M presents to ED with d/t stroke-like symptoms x 3 weeks ago on 11/12/24 when he felt confused, had left sided weakness. Pt went to [facility] previously but left without being treated. Pt noted to have some left sided weakness, a little unsteady on his feet. A+OX4, calm, cooperative. Pt denies any pain or discomfort. Labs: PT 13.2, INR 1.2, Potassium 2.8, BUN 24, cholesterol 205, LDL 155, HDL 33 Head/neck CTA: High degree stenosis, right P1 and right P2 segments. Moderate degree stenosis, left P1 segment. No main cerebral artery occlusion or embolus. No dissection or high-grade stenosis in the vessels of the neck. MRI pending Admit for hypokalemia, stroke rule out
[2024-12-01 20:00] VITALS: BP 164/88; PULSE 69; RESP 18; TEMP 36.3; O2SAT 100
[2024-12-01 20:28] VITALS: BMI 29.3
[2024-12-01 20:42] LABS: Glucose, Whole Blood 113 mg/dL (60-115)
[2024-12-01 21:17] LABS: Potassium 3.0 mmol/L (3.3-5.1)
[2024-12-01 23:50] VITALS: BP 147/87; PULSE 67; RESP 16; TEMP 36.6; O2SAT 97
[2024-12-02 03:30] VITALS: BP 140/89; PULSE 64; RESP 16; TEMP 37; O2SAT 99
[2024-12-02 07:12] LABS: Anion Gap 9 (12-20); Blood Urea Nitrogen 21 mg/dL (9-16); Calcium 9.1 mg/dL (8.4-10.2); Carbon Dioxide 32 mmol/L (22-29); Chloride 106 mmol/L (96-108); Creatinine Clr Calc Pharmacy 66.5; Estimated Glomerular Filt Rate > 60; Potassium 3.1 mmol/L (3.3-5.1); Sodium 144 mmol/L (135-145)
[2024-12-02 07:35] VITALS: BP 139/97; PULSE 65; RESP 18; TEMP 36.2; O2SAT 96
[2024-12-02 08:30] VITALS: BP 139/97; PULSE 65; O2SAT 96
--- NOTE | 2024-12-02 08:46 | MHC.CM.PN ---
CM met with Patient at bedside and addressed IMM with him, providing Patient with the original and a copy has been placed on the chart. 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 OT is recommending home with services; CM has initiated and will follow for dc planning. PCP is Dr. Parminder Hawk and one of Patient's children will transport to home at dc.
[2024-12-02] MEDS: Potassium Chloride ER 20 MEQ TAB.ER.PRT 40 MEQ PO (09:16)
[2024-12-02] MEDS: 0.9 % Sodium Chloride Flush 3 ML SYRINGE IVFLUSH (09:16)
[2024-12-02] MEDS: Aspirin Enteric Coated 81 MG TABLET.DR PO (09:16)
[2024-12-02 11:32] VITALS: BP 162/99; PULSE 79; RESP 18; TEMP 36.4; O2SAT 98
--- NOTE | 2024-12-02 15:20 | PM.NEUROCN ---
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 The patient reports awakening to do so feeling confused/disoriented. He tried to call his friend on his phone and had difficulty with fine motor movements of the left arm. He has also felt that it was weak and heavy. When he called his friend, he noticed that his speech sounded ?funny?. He took a nap and then when he awoke he was no longer confused and his speech had returned to normal. He continued to have some residual left upper extremity weakness and heaviness. He went to see his primary care who noted that he still have left-sided facial droop and he was sent to the emergency department for evaluation. He tells me today that he has not had any further episodes of confusion, expressive aphasia, or slurred speech. He does note some residual weakness to the left upper extremity and some very slight weakness to the lower extremity. He does note a left facial droop when he looks in the mirror. He denies any vision changes. Hospital workup has included: CT/CTA head and neck IMPRESSION: High-degree stenosis, right P1 and P2 segments. Moderate degree stenosis, left P1 segment. No means cerebral artery occlusion or embolus. No dissection or high-grade stenosis in the vessels of the neck MRI brain 12/01/2024 IMPRESSION: 1. No acute intracranial findings. 2. Multiple lacunar foci of encephalomalacia in jason, mesencephalon, and and single in the right putamen. 3. Periventricular microvascular ischemic disease. Multiple sclerosis has not been excluded. Clinical correlation suggested. 4. Right maxillary sinus disease. Review of Systems Review of Systems: Yes all other systems are reviewed and are negative Neurologic: Denies Abnormal speech present [facility] Past Medical History Medical History CKD stage 3a, GFR 45-59 ml/min Stroke GERD with esophagitis Hypertension Hyperlipidemia Social History Social History Household Members: None Housing: House Patient Tobacco Use Status: Never used Tobacco e-Cigarette/Vaping Use: Never Used Second Hand Smoke Exposure: Yes service: No Current occupational status: employed and retired Current occupation: [employer] Allergies Allergy/AdvReac Type Severity Reaction Status Date / Time codeine AdvReac Mild Nausea Verified 12/01/24 12:09 Penicillins AdvReac Mild Nausea Verified 12/01/24 12:09 Active Medications: Current Medications Acetaminophen (Acetaminophen 325 Mg Tablet) 650 mg PO Q6H PRN PRN Reason: Pain, Mild 1-3,fever,headache Aspirin (Aspirin Enteric Coated 81 Mg Tablet.) 81 mg PO DAILY [facility] Last Admin: 12/02/24 09:16 Dose: 81 mg Atorvastatin Calcium (Atorvastatin Calcium 80 Mg Tablet) 80 mg PO DAILY [facility] Last Admin: 12/02/24 09:16 Dose: 80 mg Calcium Carbonate (Calcium Carbonate 750 Mg Tab.Chew) 750 mg PO Q4H PRN PRN Reason: Heartburn Heparin Sodium (Porcine) (Heparin Sodium,Porcine 5,000 Unit/Ml Vial) 5,000 unit SUBCUT Q12H [facility] Last Admin: 12/02/24 05:30 Dose: 5,000 unit Lisinopril (Lisinopril 10 Mg Tablet) 10 mg PO DAILY [facility]; Protocol Last Admin: 12/02/24 09:16 Dose: 10 mg Magnesium Hydroxide (Milk Of Magnesia 30 Ml Oral.Susp) 30 ml PO DAILY PRN PRN Reason: Constipation Melatonin (Melatonin 3 Mg Tablet) 6 mg PO BEDTIME PRN PRN Reason: Insomnia Omeprazole (Omeprazole 20 Mg Capsule.) 20 mg PO BID@0630,1630 [facility] Last Admin: 12/02/24 05:31 Dose: 20 mg Sodium Chloride (0.9 % Sodium Chloride Flush 3 Ml Syringe) 3 ml IVFLUSH QSHIFT [facility] Last Admin: 12/02/24 09:16 Dose: 3 ml Home Medications ?Medication ?Instructions ?Recorded ?Confirmed ?Last Taken ?Type omeprazole 20 mg tablet,delayed 20 mg PO BID@0630,1630 10/27/24 12/01/24 12/01/24 History release acetaminophen 650 mg 1,300 mg PO Q8H PRN 12/01/24 12/01/24 Unknown History tablet,extended release (Arthritis Inflammation/Pain Pain Relief (acetaminophen) ER) ibuprofen 200 mg tablet 200 mg PO Q6H PRN Pain 12/01/24 12/01/24 Unknown History Physical Exam Vital Signs: Vital Signs: Last Vital Signs Temp 97.6 F 12/02/24 11:32 Pulse 79 12/02/24 11:32 Resp 18 12/02/24 11:32 BP 162/99 H 12/02/24 11:32 Pulse Ox 98 12/02/24 11:32 O2 Del Method Room Air 12/02/24 11:32 BMI result Body Mass Index 29.3 Const: General: cooperative, healthy appearing, comfortable and no acute distress Orientation/consciousness: oriented to person, oriented to place and oriented to time HEENT: Head: Yes normal to inspection Eyes: General: appearance normal, both eyes and all related structures Visual Mercado: normal visual mercado by confrontation Alignment and Position: alignment normal and position normal Periorbital: periorbital findings normal Eyelids: Yes eyelids normal Conjunctivae: conjunctivae normal Sclerae: sclerae normal Corneas: corneas normal Pupils: Equal, round and reactive pupils present EOM: EOMs intact bilaterally Direct Ophthalmoscopy: normal light reflex Neuro: General: oriented to person, oriented to place, oriented to time, CN's II-XI intact bilaterally and Unable to assess gait Cranial nerves: Yes Equal, round and reactive pupils present Cognition (Neuro): normal cognition Speech: No Abnormal speech present Gait exam (Neuro): Unable to assess gait Motor exam (neuro): Abnormal motor strength present (LUE weakness 4/5 , LLE weakness -5/5) Sensory Exam: Normal double simultaneous stimulation for sensation Deep tendon reflexes (DTR's): Right triceps reflex intensity grade: 1+, Left triceps reflex intensity grade: 1+, Rt Biceps (C5, C6): 1+, Left biceps reflex intensity grade: 1+, Right brachioradialis reflex intensity grade: 1+, Left brachioradialis reflex intensity grade: 1+, Right patellar reflex intensity grade: 1+, Left patellar reflex intensity grade: 1+, Right ankle reflex intensity grade: 1+ and Left ankle reflex intensity grade: 1+ Coordination: [id number]-[id number] test normal Results Labs 12/01/24 12:44 12/02/24 06:41 Labs: BMP 12/01/24 12/02/24 20:55 06:41 Sodium 144 Potassium 3.0 L 3.1 L Chloride 106 Carbon Dioxide 32 H BUN 21 H Creatinine 1.19 Calcium 9.1 Assessment and Plan (1) Hypertension: Qualifiers: Hypertension type: unspecified Qualified Code(s): I10 - Essential (primary) hypertension Status: Acute (2) Hyperlipidemia: Qualifiers: Hyperlipidemia type: other hyperlipidemia Qualified Code(s): E78.49 - Other hyperlipidemia Status: Acute (3) Stroke: Qualifiers: CVA mechanism: unspecified Qualified Code(s): I63.9 - Cerebral infarction, unspecified Status: Acute (4) Cerebral microvascular disease: Status: Acute Plan This is a 64-year-old left-hand dominant male patient with a past medical history of hypertension, hyperlipidemia, and 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 The patient does note some continued left sided weakness and left facial. But otherwise his speech and comprehension are back to baseline. After review of the MRI and CT/CTA imaging, symptoms most likely coincide with a microvascular event. I would recommend continuation of risk factor modification including good control of blood pressure and cholesterol. He should also continue on an anti platelet. No need for dual antiplatelet time. We Procedures Date of Service Date of Service: 12/02/24
[2024-12-02 15:24] VITALS: BP 140/96; PULSE 88; RESP 16; TEMP 36.6; O2SAT 97
--- NOTE | 2024-12-02 15:40 | P.DS_ITS ---
DS: Providers Provider Date of Service: 12/02/24 Date of admission: 12/01/24 16:19 Date of discharge: 12/02/24 Primary care physician: Parminder Hawk MD Consults: 12/01/24 16:55 Consult to Neurology Routine Consulting Provider: Kristyn Flood Reason for consultation: left facial droop Has provider been notified: No DS: Diagnosis Discharge Diagnosis (1) Hypertension: Status: Acute (2) Hyperlipidemia: Status: Acute (3) Stroke: Status: Acute (4) Cerebral microvascular disease: Status: Acute DS: Summary Hospital Course Hospital Course: Chief Complaint: left side facial weakness This is a 64-year-old male with history of hypertension who was sent to the emergency department by his PCP due to left-sided facial droop. Patient states 2 weeks ago he woke up feeling confused and did not know where he was. At the same time he noticed that he could not use his left arm which is his dominant arm. He tried calling a friend but he was unable to talk and the words that he could get out sounded funny. He took a nap and then when he woke up, he was no longer confused and his speech was back to normal. It seems that his left arm has remained weaker than the right, with ambulating he has been holding his arm against his side and he has not been holding his water bottle in his left hand like he usually does. Today he had a an appointment with his primary care provider who noticed he had left-sided facial droop and sent him to the [facility] department for evaluation. Head and neck CTA done in the emergency department showed high-grade stenosis of the right P1 and right P2 segments of the THIRD LOADER and moderate stenosis of the left P1 segment. There was no dissection or high-grade stenosis in the neck vessels. hospital course: Patient was admitted for stroke management. His symptoms have significantly imp roved. MRI did not reveal a discrete infarct but showed microvascular disease, which is likely responsible for his presentation. Neurology recommends risk factor modification with statin therapy, aspirin, and blood pressure control. He has been prescribed aspirin 81 mg and atorvastatin 40 mg. Physical therapy recommends home services, and outpatient follow-up with primary care is advised. Hypokalemia--potassium corrected given 40 meq while 3.1 Final diagnosis Acute ischemic stroke Time Attestation Discharge Coordination Time (in mins): 45 Quality: Safe Use of Opioids Does Pt have an Active Cancer Diagnosis on the Problem List?: No Quality: Stroke Does the patient have a stroke diagnosis?: No Physical Exam Vital Signs: Vital Signs: Last Vital Signs Temp 97.9 F 12/02/24 15:24 Pulse 88 12/02/24 15:24 Resp 16 12/02/24 15:24 BP 140/96 H 12/02/24 15:24 Pulse Ox 97 12/02/24 15:24 O2 Del Method Room Air 12/02/24 15:24 BMI result Body Mass Index 29.3 Const: Other: General: AO X 3, no acute distress Resp: CTA bilateral CVS: S1,S2,RRR GI: +BS, NT, no distention Skin: No rash Neuro: motor grossly intact Psych: appropriate affect DS: Data Data Completed and Pending Labs on day of discharge: Laboratory Results - last 24 hr 12/01/24 12/01/24 12/01/24 12:44 20:38 20:55 Sodium Potassium 3.0 L Chloride Carbon Dioxide Anion Gap BUN Creatinine Estim Creat Clear Calc Estimated GFR POC Glucose 113 Random Glucose Calcium Triglycerides 87 Cholesterol 205 H LDL Cholesterol, Calc 155 H HDL Cholesterol 33 L 12/02/24 06:41 Sodium 144 Potassium 3.1 L Chloride 106 Carbon Dioxide 32 H Anion Gap 9 L BUN 21 H Creatinine 1.19 Estim Creat Clear Calc 66.5 Estimated GFR > 60 POC Glucose Random Glucose 97 Calcium 9.1 Triglycerides Cholesterol LDL Cholesterol, Calc HDL Cholesterol Discharge Plan Discharge Anticipated Discharge Date/Time: 12/02/24 15:26 Patient Disposition: Home, Self-Care Discharge Diagnosis: Acute stroke Referrals: Parminder Hawk MD [Primary Care Provider, Internal Medicine] - 1 Week Discharge Medications: New aspirin 81 mg Tablet,Delayed Release (Dr/Ec) 81 mg PO DAILY Qty: 90 0RF atorvastatin [Lipitor] 40 mg tablet 40 mg PO BEDTIME Qty: 90 0RF Continued lisinopril 10 mg tablet 10 mg PO DAILY Qty: 90 3RF omeprazole 20 mg tablet,delayed release (DR/EC) 20 mg PO BID@0630,1630 acetaminophen [Arthritis Pain Relief (acetam)] 650 mg Tablet Extended Release 1,300 mg PO Q8H PRN (Reason: Inflammation/Pain) ibuprofen 200 mg Tablet 200 mg PO Q6H PRN (Reason: Pain) Discharge Orders: Discharge Order (Routine); Ordered 12/02/24 Ordered By: Hilario Rosado Diet: Advance to usual diet Activity on Discharge: As tolerated Stand Alone Forms: Patient Portal Discharge page Print Language: Armenian Care Plan Goals: recovery from stroke Health Concerns: acute stroke, high cholesterol Plan of Treatment: see above Assessment: see above
--- NOTE | 2024-12-02 15:54 | MHC.CM.PN ---
Patient has been medically cleared for dc to home today, self care.
--- NOTE | 2024-12-02 15:55 | W.MHC.F2F ---
Service Date Service Date: 12/02/24 Encounter Date of encounter: 12/02/24 Reasons for Services Signs and symptoms assessed: weakness, facial droop Reason for longterm: neurological assessment and teach disease management Reason for physical therapy: therapeutic exercises Homebound: Leaving the home is medically contraindicated at this time without the asist of a device and/or another person due th the listed conditions above and below. Reason homebound: other (weakness due to stroke symptoms) Homebound supporting statement: patient with weakness due to stroke symptoms and therefore needs the assistance of another person Certification: Based on the above findings, I certify that this patient is confined to the home and needs intermittent longterm care, physical therapy and/or speech therapy, or continues to need occupational therapy. The patient is under my care, and I have initiated the establishment of the plan of care. The patient will be followed by a physician who will periodically review the plan of care. Time Spent With Patient Time: Total time managing care of this patient today ____ minutes.
--- NOTE | 2024-12-02 16:00 | CA_ITS ---
Transthoracic Echocardiogram Patient (Last, First, Middle): Bautista Clements A Gender: Male Date of : 1960 Age: 64 Procedure Date: 12/02/2024 Procedure Type: Transthoracic [place]ogram [place] [facility] [place]: 172.72 cm Weight: 87.09 kg BSA: 2.01 m2 Heart Rate: bpm BP: 139 / 97 mmHg Lumber Driver: RYAN Referring MD: Dominique PASCUAL Symptoms: stroke protocol Study Quality: Adequate Conclusions: - Normal left ventricular size and systolic function. There is mildly increased left ventricular wall thickness. The visually estimated ejection fraction is between 60-65%. - Normal right ventricular cavity size and systolic function. - There is mild dilatation of the sinuses of Valsalva measuring 4.00 cm and mild dilatation of the ascending aorta measuring 4.40 cm. Findings Left Ventricle Normal left ventricular size and systolic function. There is mildly increased left ventricular wall thickness. The visually estimated ejection fraction is between 60-65%. There is no evidence of regional wall motion abnormalities. Diastolic function is normal for age. Right Ventricle Normal right ventricular cavity size and systolic function. Atria The left atrium is normal in size. There is no evidence of interatrial shunt by agitated saline. The right atrium is normal in size. Aortic Valve Normal aortic valve structure and function. There is no aortic valve stenosis. There is no aortic valve regurgitation. Mitral Valve The mitral valve appears normal. There is no mitral valve regurgitation. There is no mitral valve stenosis. Pulmonic Valve The pulmonic valve is likely normal. Tricuspid Valve Normal tricuspid valve structure. There is no tricuspid valve regurgitation. Normal right atrial pressure. There is no evidence of pulmonary hypertension. Great Vessels There is mild dilatation of the sinuses of Valsalva measuring 4.00 cm and mild dilatation of the ascending aorta measuring 4.40 cm. Venous The inferior vena cava is normal in size and collapses greater than 50% with inspiration. Pericardium/Pleural There is no evidence of pericardial effusion. Prior Study Comparison No prior study available for comparison. Measurements 2D Linear Measurements IVSd: 1.14 0.6-0.9/0.6-1.0 cm LVIDd: 4.80 3.9-5.3/4.2-5.9 cm LVIDd Index: 2.39 2.4-3.2/2.2-3.1 cm/m2 LVIDs: 2.04 2.0-3.6 cm LVPWd: 1.08 0.7-1.1 cm LA Diam: 4.00 2.7-3.8/3.0-4.0 cm LAIDs Index: 1.99 1.5-2.3 cm/m2 LV Mass: 244.77 67-162/88-224 g LV Mass Index: 121.78 43-95/49-115 g/m2 LVOT Diam: 2.50 3.0+(-)1.3 cm 2D Systolic Function EF 4C: 52.20 >55% EF 2C: 59.60 >55% EF BiP: 56.50 >55% Mitral Valve MV Pk E: 0.61 MV PK A: 0.84 MV Decel Time: 238.00 E/A: 0.70 E'Lateral: 10.90 E'Medial: 5.66 E/E' Med: 10.70 E/E' Lat: 5.60 PHT: 70.00 MVA PHT: 3.14 Decel Ector: 2.61 LVOT LVOT Diam: 2.50 LVOT Area: 4.91 Diastolic Function MV Pk E: 0.61 MV Pk A: 0.84 E/A: 0.70 E'Medial: 5.66 E/E' Med: 10.70 E' Laterial: 10.90 E/E' Lat: 5.60 Right Ventricle TAPSE (mm): 26.70 TVS' Aaron: 12.20 Tricuspid Valve TR Pk Aaron: 1.72 TR Pk Grad: 12.00 RA Press: 3.00 RVSP: 15.00 Great Vessels Aorta Sinus of Valsalva: 4.00 2.0-3.5 cm Ao Asc: 4.40 2.1-3.4 cm Ao Arch: 3.20 Pulmonary Veins Pulm Vein S/D 1.20 Pulmonary Valve PV Pk Aaron: 1.18 Peak PV Grad: 6.00 Updated in Other Vendor System with Status of Final Sebastian Munoz MD electronically signed on 12/03/2024 8:31:11 PM with status of Final
--- NOTE | 2024-12-16 07:46 | P.CDIM_ITS ---
PROVIDER RESPONSE TEXT: To clarify, the appropriate diagnosis supported by the clinical indicators: Acute ischemic Stroke remains a known or suspected condition QUERY TEXT: PHYSICIAN'S DOCUMENTATION REQUEST Date of Query: 12/15/2024 09:57 AM EDT Patient Name: Bautista Clements Admit Date: 12/01/2024 Dear Hilario Rosado MD, RETROSPECTIVE QUERY A review of the medical record indicates additional documentation may be needed. Please review below and update the documentation accordingly. Clinical indicators: Neurology consultation note 12/02/24 - Confused and disoriented, expressive aphasia or slurred speech. PMH: Stroke The patient does note some continued left sided weakness and left facial. After review of MRI and CT/CTA, symptoms coincide with microvascular event. D/S 12/02/24 - MRI did not reveal a discrete infarct but showed microvascular disease, which is likely responsible for his presentation. Neurology recommends statin therapy, aspirin, and blood pressure control, prescribed aspirin 81 mg and atorvastatin 40 mg. Final diagnosis: Acute ischemic stroke Please clarify the documentation between the diagnosis of Cerebral microvascular disease vs. Acute ischemic Stroke: Acute ischemic Stroke remains a known or suspected condition The Acute ischemic stroke has been ruled out and a more appropriate diagnosis for this patient's condition is Other (explain) Clinically unable to determine (explain) Thank you, Maryjo Fritz, CCS, CDIS Use of terms such as suspected, likely, concern for, or probable (associated with a specific diagnosis that is being evaluated, monitored, or treated as if it exists) are acceptable and can be coded in the inpatient setting, when documented at the time of discharge. Please use your independent medical judgment in providing your response. THIS QUERY IS PART OF THE PERMANENT MEDICAL RECORD
== END 2024-12-02 16:24 | disposition home health service (06) | DRG 66 ==
LOC: HO.ED 12:55 → HO.EDOVER 16:28 → HO.IMC 19:34
PROVIDERS: Admitting Provider Physician Assistant Medical; Emergency Provider Emergency Medicine; PCP Student in an Organized Health Care Education/Training Program; Visit Provider Internal Medicine
DX: I63.9 Cerebral infarction, unspecified (principal); I67.89 Other cerebrovascular disease; R29.704 NIHSS score 4; I12.9 Hypertensive chronic kidney disease with stage 1 through stage 4 chronic kidney disease, or unspecified chronic kidney disease; R29.810 Facial weakness; N18.30 Chronic kidney disease, stage 3 unspecified; E87.6 Hypokalemia; G83.22 Monoplegia of upper limb affecting left dominant side; Z79.899 Other long term (current) drug therapy
CPT/HCPCS: 36415; 70496; 70498; 70551; 80048; 80053; 80061; 82947; 83735; 84132; 84484; 85025; 85610; 93005; 93306; 96127; 97162; 97165; 99202; 99222; 99285; J1644; J3480; Q9957; Q9967

== ENCOUNTER → 2024-12-01 12:29 | Outpatient (BNV) | payer MEDICARE, SELFPAY | PROVIDERS: Emergency Provider Emergency Medicine; PCP Student in an Organized Health Care Education/Training Program; Visit Provider Internal Medicine Cardiovascular Disease | DX: I49.1 Atrial premature depolarization (principal); I44.4 Left anterior fascicular block | CPT/HCPCS: 93010 ==

== ENCOUNTER → 2024-12-01 12:33 | Outpatient (BNV) | payer MEDICARE, SELFPAY | PROVIDERS: Emergency Provider Emergency Medicine; PCP Student in an Organized Health Care Education/Training Program; Visit Provider Radiology Diagnostic Radiology | DX: I66.21 Occlusion and stenosis of right posterior cerebral artery (principal); I66.22 Occlusion and stenosis of left posterior cerebral artery | CPT/HCPCS: 70496; 70498 ==

== ENCOUNTER 2024-12-01 16:19 | Outpatient (BNV) | payer MEDICARE, SELFPAY | END 2024-12-02 16:00 | PROVIDERS: Admitting Provider Physician Assistant Medical; Emergency Provider Emergency Medicine; PCP Student in an Organized Health Care Education/Training Program; Visit Provider Internal Medicine Cardiovascular Disease | DX: I63.9 Cerebral infarction, unspecified (principal); I71.21 Aneurysm of the ascending aorta, without rupture | CPT/HCPCS: 93306 ==

== ENCOUNTER → 2024-12-01 16:19 | Outpatient (BNV) | payer MEDICARE, SELFPAY | PROVIDERS: Admitting Provider Physician Assistant Medical; Emergency Provider Emergency Medicine; PCP Student in an Organized Health Care Education/Training Program; Visit Provider Physician Assistant Medical | DX: I10 Essential (primary) hypertension (principal); I63.9 Cerebral infarction, unspecified; E87.6 Hypokalemia | CPT/HCPCS: 99223 ==

== ENCOUNTER 2024-12-07 11:12 | Outpatient (REF) | payer MEDICARE, SELFPAY | END 2024-12-07 11:13 | disposition home or self-care (01) | LOC: HO.LAB 11:12 | PROVIDERS: PCP Student in an Organized Health Care Education/Training Program; Visit Provider Student in an Organized Health Care Education/Training Program | DX: I10 Essential (primary) hypertension (principal); E78.5 Hyperlipidemia, unspecified; I69.354 Hemiplegia and hemiparesis following cerebral infarction affecting left non-dominant side; I12.9 Hypertensive chronic kidney disease with stage 1 through stage 4 chronic kidney disease, or unspecified chronic kidney disease; N18.31 Chronic kidney disease, stage 3a; K21.00 Gastro-esophageal reflux disease with esophagitis, without bleeding | CPT/HCPCS: 36415; 82306; 84443; 99212 ==

== ENCOUNTER 2024-12-07 11:12 | Outpatient (AMB) | payer MEDICARE, SELFPAY ==
--- NOTE | 2024-12-07 09:00 | A.OFFPC_ITS ---
Vital Signs 12/07/24 11:17 Weight 191 lb BP 138/100 H Blood Pressure Location Lt brachial Position Sitting Respiration 18 Pulse 91 Pulse Source Pulse Oximeter Temp 97.2 F Temp Source Temporal Artery Scan Pulse Oximetry (%) 100 Oxygen Delivery Method Room Air Intake Visit Reasons: F/U D/C ED 12/02 & BP meds. Fertilizer Mixer Required: No Accompanied by: Self / Same As Patient Allergies codeine Adverse Reaction (Mild, Verified 12/07/24 09:00) Nausea Penicillins Adverse Reaction (Mild, Verified 12/07/24 09:00) Nausea Tobacco use date assessed: 12/01/24 Last assessed Fall Risk: 12/01/24 Dental Screening Dental Screen Date: 12/01/24 HPI HPI Comments History of Present Illness Details The patient is a 64-year-old male presenting with fatigue and a feeling of fuzziness in his head, primarily related to his recent ischemic stroke. He reports that his symptoms were relatively well-managed until today, when he began feeling off. He indicated left-sided weakness, which is a result of the stroke affecting his strength. This weakness varies daily without a clear pattern of worsening. The patient acknowledged that his condition improved yesterday but declined today without any specific inciting events. The patient's MRI reports multiple small foci of strokes in the jason and putamen, along with microvascular ischemic disease. Additional findings include high-grade stenosis in the posterior circulation, contributing to the present condition. Likewise, chronic high blood pressure has been identified as an exacerbating factor for his condition. During hospitalization for his stroke, blood pressure challenges were noted, and he was prescribed lisinopril. Although the medication has helped reduce his blood pressure, it remains inadequately controlled, as evidenced by today's reading of 138/100 mmHg. Other chronic conditions impacting the patient's health include hyperlipidemia, which remains poorly controlled, with the LDL level above 150 despite atorvastatin therapy. Additionally, chronic kidney disease has been diagnosed, though there are signs of improvement in his creatinine levels. Medical History: - Ischemic Stroke resulting in left-side d weakness - Essential Hypertension - Hyperlipidemia - Chronic Kidney Disease - Gastroesophageal Reflux Disease - Arthritis Surgical History: - Gallbladder removal in Octoberi ous year Medications: - Lisinopril 10 mg for hypertension - Atorvastatin 40 mg for hyperlipidemia - Omeprazole for gastroesophageal reflux disease - Aspirin for stroke prevention Diagnostic Results: - MRI showing multiple small foci of str okes in the jason and putamen, microvascular ischemic disease - High-grade stenosis in the posterior c irculation Social History: - Employment: Uncertain regarding return ing to work due to ongoing physical weakness - Housing: Confirmed not at his home, nemo warnering eligibility for in-home care - Physical Activity: Expressed interest in home-based physical therapy pending recovery of strength - Functional Status: As of now, he exper iences significant weakness affecting his left side [facility] Medical History (Updated 12/07/24 @ 11:40 by Parminder Hawk MD) LUE weakness CKD stage 3a, GFR 45-59 ml/min Stroke GERD with esophagitis Hypertension Hyperlipidemia Social History Household Members: None Housing: House Patient Tobacco Use Status: Never used Tobacco e-Cigarette/Vaping Use: Never Used Second Hand Smoke Exposure: Yes service: No Current occupational status: employed and retired Current occupation: [employer] Questionnaire Thrive Questionnaire Date Thrive assessed: 12/02/24 SALAZAR-7 AMB Questionnaire SALAZAR-7 Date SALAZAR - 7 assessed: 12/01/24 Source: Developed by Drs. Hermes Fleming, Simona Sandoval, Jc Gonzalez and colleagues, with an educational petros from [employer]. Review of Systems Const Details: - Neurological: Reports fatigue and fuzziness in the head. Denies worsening of weakness. All systems reviewed & are unremarkable except as reviewed in HPI and above Physical exam (Primary Care) Vital Signs: Last Vital Signs Temp 97.2 F 12/07/24 11:17 Pulse 91 12/07/24 11:17 Resp 18 12/07/24 11:17 BP 138/100 H 12/07/24 11:17 Pulse Ox 100 12/07/24 11:17 Oxygen Delivery Method Room Air 12/07/24 11:17 Tobacco/Smoking Status: Tobacco use Status Tobacco use date assessed 12/01/24 12/07/24 09:01 Patient Tobacco Use Status Never used Tobacco 12/07/24 09:01 e-Cigarette/Vaping Use Never Used 12/07/24 09:01 Thrive Assessment: Date of Thrive Assessment Date Thrive assessed 12/02/24 12/07/24 09:01 Const Other: General: +Alert and oriented, Well nourished, No acute distress. Eye: Pupils are equal, round and reactive to light, Intact accommodation, Extraocular movements are intact, Normal conjunctiva, Vision unchanged. HENT: Normocephalic, Atraumatic, Tympanic membranes are clear, Normal hearing, Oral mucosa is moist, No pharyngeal erythema, Ear canals patent. Respiratory: Lungs CTA bilaterally, No wheeze, Respirations are non-labored. Cardiovascular: Regular rate, Regular rhythm, S1 auscultated, S2 auscultated, No murmur, Good pulses equal in all extremities, Normal peripheral perfusion, No edema. Gastrointestinal: Soft, Non-tender, Non-distended, Normal bowel sounds, No organomegaly. Musculoskeletal: Normal range of motion, Normal strength, No tenderness, No swelling, No deformity, Normal gait. Integumentary: Warm, Dry, [place], Intact. Neurologic: Alert, Oriented, Left-sided weakness due to stroke, Droopy angle of the mouth, Cranial Nerves II-XII are grossly intact, Normal deep tendon reflexes. Psychiatric: Cooperative, Appropriate mood & affect, Normal judgment. Coding Level of Care Code [facility] <= 14 days Diagnoses Cerebrovascular accident (CVA), unspecified mechanism I63.9 CVA mechanism: unspecified CKD stage 3a, GFR 45-59 ml/min N18.31 Hypertension, unspecified type I10 Hypertension type: unspecified Other hyperlipidemia E78.49 Hyperlipidemia type: other hyperlipidemia Gastroesophageal reflux disease with esophagitis without hemorrhage K21.00 Esophagitis bleeding: without hemorrhage Time Spent (min) 60 Assessment & Plan Assessment & Plan (1) Stroke: Comment: - Recent MRI & CT Scan reviewed from hosptilization, Microvascular disease with multiple infarcts with High Grade Stenosis in P1 to P3 of 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 - Discuss the importance of physical therapy to enhance recovery and prevent muscular atrophy. Code(s): I63.9 - Cerebral infarction, unspecified Category: Medical Qualifiers: CVA mechanism: unspecified Qualified Code(s): I63.9 - Cerebral infarction, unspecified (2) CKD stage 3a, GFR 45-59 ml/min: Comment: - Labs reviewed with baseline creatinine at 1.3 - Continue to monitor kidney function, as improvement in creatinine levels is noted Code(s): N18.31 - Chronic kidney disease, stage 3a Category: Medical (3) Hypertension: Comment: - Prescribe nifedipine 30 mg alongside lisinopril for better blood pressure control. - Stress the significance of monitoring blood pressure at home. Code(s): I10 - Essential (primary) hypertension Category: Medical Qualifiers: Hypertension type: unspecified Qualified Code(s): I10 - Essential (primary) hypertension (4) Hyperlipidemia: Comment: - Switch from atorvastatin to high-intensity rosuvastatin given current myopathy concerns and elevated LDL levels. - Advise monitoring of muscle symptoms with the medication change. Code(s): E78.5 - Hyperlipidemia, unspecified Category: Medical Qualifiers: Hyperlipidemia type: other hyperlipidemia Qualified Code(s): E78.49 - Other hyperlipidemia (5) GERD with esophagitis: Comment: - Continue current omeprazole treatment. Code(s): K21.00 - Gastro-esophageal reflux disease with esophagitis, without bleeding Category: Medical Qualifiers: Esophagitis bleeding: without hemorrhage Qualified Code(s): K21.00 - Gastro-esophageal reflux disease with esophagitis, without bleeding Plan: Health maintenance: - Blood pressure management with home monitoring - Routine lab work for lipid profile, thyroid, and vitamin D - Encouragement of a heart-healthy diet and regular physical activity Patient was informed and verbally consented to the use of an ambient scribe for clinic note documentation during this visit. Plan During today's visit, I discussed the patient's condition extensively, emphasizing the management strategies for his ischemic stroke and comorbidities. For blood pressure, I recommended adding nifedipine to better control hypertension, with emphasis on home monitoring. The risks of high blood pressure were weighed against the benefits and necessary lifestyle modifications were stressed. Regarding hyperlipidemia, we discussed changing the medication to a high- intensity statin due to concerns of muscle weakness, and we prioritized the risk factors in his overall cardiovascular health. His kidney function, although showing improvement, remains under close surveillance with prospective follow-up tests. For arthritis and reduced strength post-stroke, the patient was informed on the importance of engaging in physical therapy to enhance functional recovery. Additionally, I encouraged him to take a brief leave from work to focus on his health and rehabilitation with plans to return more robustly on January 26. Orders: Orders PT Evaluation and Treatment Today I63.9 - Cerebral infarction, unspecified, R29.898 - Other symptoms and signs involving the musculoskeletal system Medications: New nifedipine ER 30 mg PO DAILY 90 tabs 0RF rosuvastatin 40 mg PO DAILY 90 tabs 3RF Discontinued atorvastatin (Lipitor) Discontinued Reason: Doctor's Order 40 mg PO BEDTIME 90 tabs 0RF Patient Instructions: - Take nifedipine along with lisinopril as prescribed. - Monitor your blood pressure daily and keep a record. - Begin the prescribed statin and report any muscle weakness. - Attend recommended physical therapy sessions. - Eat a healthy diet and exercise as able. - Return to the ED for worsening symptoms or concerns - Return in three months for a follow-up and continue scheduled lab work.
[2024-12-07 11:17] VITALS: BP 138/100; PULSE 91; RESP 18; TEMP 36.2; O2SAT 100
--- OUTSIDE RECORDS SUMMARY | 2024-12-07 12:47 | XMS_ITS | Clinical Summary ---
Author Organization [facility] Address [address] [place] [address] Phone Care Team Providers Care Clip Loading Machine Feeder Name Role Phone Yariel Lopez MD Primary Care Provider [phone] Medications diclofenac (VOLTAREN) 1 % topical gel Apply 4 g topically 4 (four) times a day. Active Social History Tobacco Use Types Packs/Day Years Used Date Smoking Tobacco: Never Assessed Sex and Gender Information Value Date Recorded Sex Assigned at Not on file Legal Sex Male 11:04 AM EDT Gender Identity Not on file Sexual Orientation Not on file Last Filed Vital Signs Vital Sign Reading Time Taken Comments Blood Pressure - - Pulse - - Temperature - - Respiratory Rate - - Oxygen Saturation - - Inhaled Oxygen Concentration - - Weight 91.2 kg (201 lb) 03/21/2024 8:10 AM EST Height 174 cm (5' 8.5 ) 03/21/2024 8:10 AM EST Body Mass Index 30.12 03/21/2024 8:10 AM EST Plan of Treatment Upcoming Encounters Date Type Department Care Team (Late st Contact Info) Description 01/16/2025 9:15 AM EST Office Visit Orthopedic Surgery - [place] [address] [address] Paddy Peacock, DPM [address] [address] Health Maintenance Due Date Last Done Comments DTaP,Tdap,and Td Vaccines (1 - Tdap) 08/12/1978 Pneumococcal Vaccine: 50+ Years (1 of 1 - PCV) 08/12/2009 Zoster Vaccines (1 of 2) 08/12/2009 Abdominal Aortic Aneurysm (AAA) Screen 10/09/2023 Cholesterol Screening (Lipid Panel) 10/09/2023 Colorectal Cancer Screening: Colonoscopy 10/09/2023 Hepatitis C Screening 10/09/2023 Medicare Annual Wellness Visit 10/09/2023 Social Influencers of Health Screening 10/09/2023 Depression Screening 03/09/2024 Hypertension/CHF/CAD Annual BMP Blood Test 03/21/2024 Falls Risk Assessment 08/12/2024 COVID-19 Vaccine (3 - 2024-2 6 season) 2024 07/10/2020, 06/18/2020 Influenza Vaccine (#1) 2024 RSV Immunization Adult Patients (1 - 1-dose 75+ series) 08/12/2034 HIB Vaccines Aged Out No longer eligi ble based on patient's age to complete this topic HPV Vaccines Aged Out No longer eligi ble based on patient's age to complete this topic Hepatitis A Vaccines Aged Out No long er eligible based on patient's age to complete this topic Hepatitis B Vaccines Aged Out No long er eligible based on patient's age to complete this topic IPV Vaccines Aged Out No longer eligi ble based on patient's age to complete this topic MMR Vaccines Aged Out No longer eligi ble based on patient's age to complete this topic Meningococcal ACWY Vaccine Aged Out N o longer eligible based on patient's age to complete this topic Meningococcal B Vaccine Aged Out No l onger eligible based on patient's age to complete this topic RSV Immunization Patients Under 20 months Aged Out No longer eligible b ased on patient's age to complete this topic Varicella Vaccines Aged Out No longer eligible based on patient's age to complete this topic Insurance [place]ICA[place] - [place] MEDICARE Care Teams Clip Loading Machine Feeder Relationship Specialty Start Date End Date Yariel Lopez MD [address] [place] [address] Dr Mauricio [place] PCP - General Internal Medicine 01/29/24
--- OUTSIDE RECORDS SUMMARY | 2024-12-07 12:48 | XMS_ITS | Clinical Summary ---
Author Organization [facility] Address [address] [place] [id number] Phone Care Team Providers Care Tank Tester Name Role Phone Yariel Lopez MD Primary [...] topic Medical Devices Not on file Insurance [facility] Care Teams Tank Tester Relationship Specialty Start Date End Date Yariel Lopez MD [address] [place] [address] [place] [id number] PCP - General Internal Medicine 04/11/23 Additional Source Comments The information contained in this document represents components of the legal health record. It is not the complete legal health record.[facility]
== END 2024-12-07 11:41 | disposition home or self-care (01) ==
LOC: HO.HMCHD 11:12
PROVIDERS: PCP Student in an Organized Health Care Education/Training Program; Visit Provider Student in an Organized Health Care Education/Training Program
DX: I12.9 Hypertensive chronic kidney disease with stage 1 through stage 4 chronic kidney disease, or unspecified chronic kidney disease (principal); I63.9 Cerebral infarction, unspecified; N18.31 Chronic kidney disease, stage 3a; E78.49 Other hyperlipidemia; K21.00 Gastro-esophageal reflux disease with esophagitis, without bleeding

== ENCOUNTER 2025-02-14 14:14 | Outpatient (AMB) | payer MEDICARE, SELFPAY ==
--- OUTSIDE RECORDS SUMMARY | 2023-10-20 05:50 | XMS_ITS ---
Author Organization [facility] Address [address] [place] [address] Care Team Providers Care Advanced Practice Psychiatric Nurse Name Role Phone John (RETIRED) Yariel ANDERSON Primary Care Provide Hermes Arias [phone] REASON FOR VISIT Patient presents today for a colon screening Encounters Encounter Location Date Provider Diagnosis [facility] [address] [place] [address] 10/20/2023 Hermes Guzman Plan Of Treatment No Information Progress Notes * AVA GALARZADOB:1960 (64 yo M)Acc No.[id number]:10/20/2023 Progress Notes Patient: AVA KATE Provider: Yazan Guzman MD :1960 A ge:63 Y S ex:Male Date:10/20/2023 Address:[address] [facility] Pcp:Yariel Lopez (RETIRED )MD Subjective: * Chief [...] 10/20/2023 Generated for Printi ng/Fajenniferg/eTransmitting on: 1 04/17/2024 08:15 PM EST
--- OUTSIDE RECORDS SUMMARY | 2024-02-10 10:40 | XMS_ITS ---
Author Organization [facility] Address [address] [place] [address] Care Team Providers Care Timber Sizer Name Role Phone John (RETIRED) Yariel ANDERSON Primary Care Provide Hermes Arias [phone] REASON FOR VISIT COLON SCREENING Encounters Encounter Location Date Provider Diagnosis [facility] [address] [place] [address] 02/10/2024 Hermes Guzman Plan Of Treatment No Information Progress Notes * AVA GALARZADOB:1960 (64 yo M)Acc No.[id number]:02/10/2024 Progress Notes Patient: AVA KATE Provider: Yazan Guzman MD :1960 A ge:63 Y S ex:Male Date:02/10/2024 Address[address] [id number] Pcp:Yariel Lopez (RETIRED )MD Subjective: * Chief Complaints: * C OLON SCREENING * The named appointment provid er may or may not be the originator of this progress note, and it is not deemed complete until electronically signed by the appointment provider. Sign off status: Pending * Provider: Yazan Guzman MD Date: 04/12/2023 Generated for Lopez zapata/Elizabeth/eTransmitting on: 04/17/2024 08:14 PM EST
--- OUTSIDE RECORDS SUMMARY | 2024-06-02 05:40 | XMS_ITS ---
Author Organization [facility] Address [address] [place] [address] Care Team Providers Care Drop Crew Laborer Name Role Phone John (RETIRED) Yariel ANDERSON Primary Care Provide Hermes Arias [phone] REASON FOR VISIT Patient presents today for a COLON SCREENING Encounters Encounter Location Date Provider Diagnosis [facility] [address] [place] [address] 06/02/2024 Hermes Guzman Plan Of Treatment No Information Progress Notes * AVA GALARZADOB:1960 (64 yo M)Acc No.[id number]:06/02/2024 Progress Notes Patient: AVA KATE Provider: Yazan Guzman MD :1960 A ge:63 Y S ex:Male Date:06/02/2024 [address] [facility] Pcp:Yariel Lopez (RETIRED )MD Subjective: * Chief Complaints: * P atient presents today for a COLON SCREENING * The named appointment provid er may or may not be the originator of this progress note, and it is not deemed complete until electronically signed by the appointment provider. Sign off status: Pending * Provider: Yazan Guzman MD Date: 0 06/02/2024 Generated for Printi ng/Fajenniferg/eTransmitting on: 1 04/17/2024 08:14 PM EST
--- NOTE | 2025-02-14 14:23 | A.OFFPC_ITS ---
Vital Signs 02/14/25 14:29 Height 5 ft 8 in Weight 197 lb BMI 30.0 BP 130/100 H Blood Pressure Location Lt brachial Position Sitting Pulse 77 Pulse Source Pulse Oximeter Temp 98.0 F Temp Source Temporal Artery Scan Pulse Oximetry (%) 99 Oxygen Delivery Method Room Air Intake Visit Reasons: Doesn't feel right / Wobbly Supervisor Kennel Required: No Accompanied by: Self / Same As Patient Allergies codeine Adverse Reaction (Mild, Verified 02/14/25 14:24) Nausea Penicillins Adverse Reaction (Mild, Verified 02/14/25 14:24) Nausea Medication List - Last Reconciled 02/14/25 by Parminder Hawk MD acetaminophen ER (Arthritis Pain Relief (acetaminophen) ER) 1,300 mg PO Q8H PRN aspirin 81 mg PO DAILY ezetimibe 10 mg PO DAILY ibuprofen 200 mg PO Q6H PRN nifedipine ER 30 mg PO DAILY omeprazole 20 mg PO BID@0630,1630 Tobacco use date assessed: 12/01/24 Dental Screening Dental Screen Date: 12/01/24 HPI HPI Comments History of Present Illness Details History of Present Illness The patient is a 64 year old male presenting with worsening weakness, instability, and dizziness. He reports that for a few weeks he has felt weaker and more unstable, experiencing dizziness and feeling like he might fall over. His walking capacity has decreased from four miles to less than a half mile due to these symptoms. The onset of these symptoms was sudden, and the patient reports feeling as if he is losing muscle mass, although he has gained 6 pounds since his last visit. He feels unsteady while walking and sometimes is unable to walk in a straight line. Moving his head makes the dizziness worse, and he describes the sensation as feeling foggy. He also reports difficulty with fine motor skills on his left side, such as writing his name. His relevant medical history includes a recent stroke, hypertension, hypercholesterolemia, acid reflux, arthritis, and a history of ear and sinus problems. He also mentions having the start of a cold about a week ago that never fully materialized. For hypercholesterolemia, he is taking ezetimibe 10 mg at night due to an inability to tolerate atorvastatin or rosuvastatin; his last total cholesterol was 205 mg/dL with a bad cholesterol of 155 mg/dL. His medications include aspirin, nifedipine 30 mg for blood pressure, and omeprazole for acid reflux, which he takes as two pills once daily. Medical History: - Stroke, recent - Arthritis - Vertigo - History of sinus and ear problems - Hypercholesterolemia - Hypertension - Acid reflux Medications: - Aspirin for recent stroke - Ezetimibe 10 mg at night for hyperchol esterolemia - Nifedipine 30 mg for hypertension - Omeprazole, two pills once a day for a jacques reflux - Ibuprofen as needed - Tylenol as needed Diagnostic Results: - Labs: Previous cholesterol was 205, wi th bad cholesterol at 155. 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 - Functional Status: Reports significant ly decreased exercise tolerance, from walking four miles to struggling with half a mile. - Activity: He does not walk alone due t o instability and is accompanied by a friend or his sons. - Weight Management: Reports a 6-pound w eight gain since his last visit. - Fine Motor Skills: Reports difficulty with left-hand fine motor skills, such as writing. Health Maintenance - Advised to engage in physical and occu pational therapy to manage weakness. - Encouraged to use hand linen controller to improv e hand strength. - Advised to not walk alone and use supp ort due to instability. - Follow-up with neurology scheduled for Omayra Rdz. - Follow-up with primary care in 3 month s. Patient was informed and verbally consented to the use of an ambient scribe for clinic note documentation during this visit. Vital signs reviewed. Comprehensive history, review of systems, and physical exam completed. Medications, allergies, and problem list reviewed and updated. Counseling provided on nutrition, regular exercise, sleep hygiene, and moderation of alcohol use. Discussed age-appropriate screenings (mammogram, colonoscopy, Pap, bone density) and immunizations (flu, COVID, shingles, Tdap). Screened for depression, fall risk, and home safety; no current concerns. Discussed stress management, dental and vision care, and importance of ongoing preventive follow-up. Routine labs ordered for metabolic and lipid screening. Patient educated on healthy lifestyle and agrees with the plan. 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 Hermes Fleming, Simona Sandoval, Jc Gonzalez and colleagues, with an educational petros from [employer]. Review of Systems Narrative Review of Systems - General: Reports feeling weaker, though has gained 6 pounds. - Neurological: Reports dizziness, instability, feeling like he will fall over, and feeling a little off and foggy. - Musculoskeletal: Reports feeling like his muscles are going away. - HEENT: Reports a history of ear and sinus problems; had the start of a cold a week ago which did not fully materialize. - Gastrointestinal: Reports taking medication for acid reflux. All systems reviewed & are unremarkable except as reviewed in HPI and above Physical exam (Primary Care) Vital Signs: Last Vital Signs Temp 98.0 F 02/14/25 14:29 Pulse 77 02/14/25 14:29 BP 130/100 H 02/14/25 14:29 Pulse Ox 99 02/14/25 14:29 Oxygen Delivery Method Room Air 02/14/25 14:29 BMI result Body Mass Index 30.0 Tobacco/Smoking Status: Tobacco use Status Tobacco use date assessed 12/01/24 02/14/25 14:24 Patient Tobacco Use Status Never used Tobacco 02/14/25 14:24 e-Cigarette/Vaping Use Never Used 02/14/25 14:24 Thrive Assessment: Date of Thrive Assessment Date Thrive assessed 12/02/24 02/14/25 14:24 Narrative Physical Exam General: +Alert and oriented, Well nourished, No acute distress. Eye: Pupils are equal, round and reactive to light, Intact accommodation, Extraocular movements are intact, Normal conjunctiva, Vision unchanged. HENT: Normocephalic, Atraumatic, Tympanic membranes are clear, Normal hearing, Oral mucosa is moist, No pharyngeal erythema, Ear canals patent. Respiratory: Lungs CTA bilaterally, No wheeze, Respirations are non-labored. Cardiovascular: Regular rate, Regular rhythm, S1 auscultated, S2 auscultated, No murmur, Good pulses equal in all extremities, Normal peripheral perfusion, No edema. Gastrointestinal: Soft, Non-tender, Non-distended, Normal bowel sounds, No organomegaly. Musculoskeletal: Reduced strength on the left side, Normal range of motion, No tenderness, No swelling, No deformity, Normal gait. Integumentary: Warm, Dry, [place], Intact. Neurologic: Alert, Oriented, Normal sensory, Reduced motor function on the left side, No focal defects, Cranial Nerves II-XII are grossly intact, Normal deep tendon reflexes. Psychiatric: Cooperative, Appropriate mood & affect, Normal judgment. Coding Level of Care Code Est Pt Level 4 (33307) Complex visit Add On G2211 Diagnoses Dizziness R42 Cerebral infarction, unspecified mechanism I63.9 Cerebral infarction mechanism: unspecified mechanism CKD stage 3a, GFR 45-59 ml/min N18.31 Gastroesophageal reflux disease with esophagitis without hemorrhage K21.00 Esophagitis bleeding: without hemorrhage Other hyperlipidemia E78.49 Hyperlipidemia type: other hyperlipidemia Assessment & Plan Assessment & Plan (1) Dizziness: Comment: - The patient reports recent onset of dizziness, which is exacerbated by head movements, and a positive Gilbert-Hallpike test suggests vertigo. - This may be related to his recent cold or sinus issues. - The plan is to start meclizine as needed, two to three times a day, for dizziness. - It is also recommended that he take an nmlj-rnj-pqkvcgl decongestant such as cetirizine or loratadine. Code(s): R42 - Dizziness and giddiness Category: Medical (2) Cerebral infarction: Comment: - The patient complains of feeling weaker and has objective weakness on the left side, which is expected following his recent stroke. - He has not yet started therapy. - He will be referred to occupational therapy for hand weakness and physical therapy for general and lower extremity weakness. - He is encouraged to use hand linen controller to improve his strength. - The patient has an upcoming appointment with a neurologist on Omayra Kajal at 10:00 a.m. to manage his stroke-related issues. - He should inform the neurologist about his symptoms and the effectiveness of meclizine. Code(s): I63.9 - Cerebral infarction, unspecified Category: Medical Qualifiers: Cerebral infarction mechanism: unspecified mechanism Qualified Code(s): I63.9 - Cerebral infarction, unspecified (3) CKD stage 3a, GFR 45-59 ml/min: Comment: - Labs reviewed with baseline creatinine at 1.3 - Continue to monitor kidney function, as improvement in creatinine levels is noted Code(s): N18.31 - Chronic kidney disease, stage 3a Category: Medical (4) GERD with esophagitis: Comment: - Continue current omeprazole treatment. Code(s): K21.00 - Gastro-esophageal reflux disease with esophagitis, without bleeding Category: Medical Qualifiers: Esophagitis bleeding: without hemorrhage Qualified Code(s): K21.00 - Gastro-esophageal reflux disease with esophagitis, without bleeding (5) Hyperlipidemia: Comment: - He is currently on ezetimibe and will continue this medication. - No repeat blood work is needed at this time Code(s): E78.5 - Hyperlipidemia, unspecified Category: Medical Qualifiers: Hyperlipidemia type: other hyperlipidemia Qualified Code(s): E78.49 - Other hyperlipidemia Plan: Health Maintenance: - Advised to engage in physical and occupational therapy to manage weakness. - Encouraged to use hand linen controller to improve hand strength. - Advised to not walk alone and use support due to instability. - Follow-up with neurology scheduled for Omayra Rdz. - Follow-up with primary care in 3 months. Patient was informed and verbally consented to the use of an ambient scribe for clinic note documentation during this visit. Plan I discussed with the patient that his symptoms of dizziness, particularly with head movement, and the findings on his physical exam are consistent with vertigo. I explained that this could be related to sinus congestion and a recent viral illness. I prescribed meclizine for this and recommended an rvxm-lpa-imjcvzf decongestant. I reassured him about the side effects of meclizine, explaining that I would not prescribe something harmful. We also addressed his weakness, which I explained is an expected consequence of his recent stroke. I emphasized the importance of active rehabilitation and am referring him to physical and occupational therapy. I clarified that the management of his stroke-related sequelae falls under the specialty of neurology, and he should discuss these issues at his upcoming neurology appointment. Regarding his cholesterol, I explained that we will not check his labs at this time as it takes several months for ezetimibe to show its full effect. We have canceled his March follow-up and will see him back in 3 months. Orders: Orders OT Evaluation and Treatment Today R29.898 - Other symptoms and signs involving the musculoskeletal system PT Evaluation and Treatment Today R29.898 - Other symptoms and signs involving the musculoskeletal system Medications: New meclizine 12.5 mg PO BID-QID PRN 30 tabs 0RF dizziness Patient Instructions: - Take meclizine two or three times a day as needed when you feel dizzy. - Take an kvot-btw-forcjrr allergy medication and decongestant like Cetirizine (Aller-Kamla) or loratadine to help with sinus congestion. - You will be contacted to set up appointments for physical therapy for your general weakness and occupational therapy for your hand weakness. - Continue to use the hand linen controller you purchased to help regain strength in your hand. - Do not walk alone while you are feeling unstable. - Keep your appointment with the neurologist on Omayra Rdz at 10 a.m. and let them know about your dizziness and how the meclizine is working. - Your next follow-up appointment in this office will be in 3 months. - Do not worry about getting blood work to check your cholesterol right now; we will recheck it later.
[2025-02-14 14:29] VITALS: BP 130/100; PULSE 77; TEMP 36.7; O2SAT 99
--- OUTSIDE RECORDS SUMMARY | 2025-02-14 20:15 | XMS_ITS | Clinical Summary ---
Author Organization [facility] Address [address] [place] [address] Phone Care Team Providers Care Cargo Surveyor Name Role Phone Yariel Lopez MD Primary Care Provider [phone] Medications diclofenac (VOLTAREN) 1 % topical gel [...] 03/21/2024 8:10 AM EST Plan of Treatment Health Maintenance Due Date Last Done Comments Colorectal Cancer Screening: Colonoscopy 1960 DTaP,Tdap,and Td Vaccines (1 - Tdap) 08/12/1978 Pneumococcal Vaccine: 50+ Years (1 of 1 - PCV) 08/12/2009 Zoster Vaccines (1 of 2) 08/12/2009 Abdominal Aortic Aneurysm (AAA) Screen 10/09/2023 Cholesterol Screening (Lipid Panel) 10/09/2023 Hepatitis C Screening 10/09/2023 Medicare Annual [...] to complete this topic Insurance [place] Care Teams Cargo Surveyor Relationship Specialty Start Date End Date Yariel Lopez MD [address] [place] [address] Dr Mauricio [place] PCP - General Internal Medicine 01/29/24
--- OUTSIDE RECORDS SUMMARY | 2025-02-14 20:15 | XMS_ITS | Clinical Summary ---
Author Organization [facility] Address [address] [place] [phone] Phone Care Team Providers Care Project Development Manager Name Role Phone Yariel Lopez MD Primary [...] topic Medical Devices Not on file Insurance [facility] Care Teams Project Development Manager Relationship Specialty Start Date End Date Yariel Lopez MD [address] [place] [address] [place] [id number] PCP - General Internal Medicine 04/11/23 Additional Source Comments The information contained in this document represents components of the legal health record. It is not the complete legal health record.[facility]
--- OUTSIDE RECORDS SUMMARY | 2025-02-14 20:15 | XMS_ITS | Patient Health Record ---
Author Organization [facility] Address [address] [place] [address] Care Team Providers Care Yarn Washer Name Role Phone John (RETIRED) Yariel ANDERSON Primary Care Provide r Unavailable Hermes Guzman Unavailable [phone] Reason For Referral No Information Medications Medication SIG (Take, Route, Frequency, Duration) Notes Start Date End Date Status Cialis Active Allopurinol 100 MG Tablet TK 2 TS PO QD Oral; Duration: 30 Active Lisinopril 10 MG Tablet 1 tablet Orally Once a day Active Omeprazole 20 MG Tablet Delayed Release 2 tablet Oral Once a day Active Immunizations Vaccine Route Administration Date Status Comme nts Influenza Unknown 08/03/2019 Refused Social History Social History Drugs/Alcohol: Social Info Question Answer Notes Alcohol Screen Did you have a drink containing alcohol in the past year? Yes How often did you have a drink containing alcohol in the past year? 2 to 3 times a week (3 points) How many drinks did you have on a typical day when you were drinking in the past year? 3 or 4 drinks (1 point) How often did you have 6 or more drinks on one occasion in the past year? Less than monthly (1 point) Points 5 Interpretation Positive Additional Details Category Social Info Options Details Miscellaneous: Marital status: Occupation: [email or web address] in [place] Section Notes: Nonsmoker; alcohol abuse in the past--now just occasional wine Nonsmoker; Drinks 2-3 times per week Problems Problem Type SNOMED Code ICD Code Onset Dates Problem Status W/U Status Risk Notes Problem Screening for malignant neoplasm of colon (635905226) Encounter for screening for malignant neoplasm of colon (Z12.11) Active confirmed Problem Recinos's esophagus (148842562) Recinos's esophagus without dysplasia (K22.70) Active confirmed Problem Gastroesophageal reflux disease (048526054) Gastroesophageal reflux disease, esophagitis presence not specified (K21.9) Active confirmed Problem Coffee ground emesis (21060479) Coffee ground emesis (K92.0) Active confirmed Encounters Encounter Location Date Provider Diagnosis [facility] [address] [place] [phone] 06/01/2024 Hermes Guzman [facility] [address] [place] [phone] 11/02/2024 Hermes Guzman Plan Of Treatment Future Test Test Name Order Date UPPER GI ENDOSCOPY 04/21/2014 COLONOSCOPY 04/21/2014 UPPER GI ENDOSCOPY 08/03/2019 Medical (General) History Medical History History ICD Code HTN Denies [place],DM,CVA,Lung disease,renal dise ase EGD and Colonoscopy at age 49 [address] Harris ek--reports that these were negative GERD-EGD [id number] ed HH, small area of Recinos's without dysplasia, no esophagitis; normal duodenal biopsies Anxiety Gout Colonoscopy 05/2014-negative Surgical History Surgery Date(Month/Year) knee surgery nose surgery
== END 2025-02-14 14:54 | disposition home or self-care (01) ==
LOC: HO.HMCHD 14:15
PROVIDERS: PCP Student in an Organized Health Care Education/Training Program; Visit Provider Student in an Organized Health Care Education/Training Program
DX: R42 Dizziness and giddiness (principal); I63.9 Cerebral infarction, unspecified; N18.31 Chronic kidney disease, stage 3a; K21.00 Gastro-esophageal reflux disease with esophagitis, without bleeding; E78.49 Other hyperlipidemia

== ENCOUNTER → 2025-02-14 14:14 | Outpatient (BNVA) | payer MEDICARE, SELFPAY | PROVIDERS: PCP Student in an Organized Health Care Education/Training Program; Visit Provider Student in an Organized Health Care Education/Training Program | DX: R42 Dizziness and giddiness (principal); I12.9 Hypertensive chronic kidney disease with stage 1 through stage 4 chronic kidney disease, or unspecified chronic kidney disease; N18.31 Chronic kidney disease, stage 3a; K21.00 Gastro-esophageal reflux disease with esophagitis, without bleeding; E78.49 Other hyperlipidemia; Z86.73 Personal history of transient ischemic attack (TIA), and cerebral infarction without residual deficits; Z79.82 Long term (current) use of aspirin; Z79.899 Other long term (current) drug therapy | CPT/HCPCS: 99212 ==

== ENCOUNTER 2025-03-01 09:36 | Outpatient (AMB) | payer MEDICARE, SELFPAY ==
--- OUTSIDE RECORDS SUMMARY | 2023-10-20 05:50 | XMS_ITS ---
Author Organization [facility] Address [address] [place] [address] Care Team Providers Care Evaluation Manager Name Role Phone John (RETIRED) Yariel ANDERSON Primary Care Provide Hermes Arias [phone] REASON FOR VISIT Patient presents today for a colon screening Encounters Encounter Location Date Provider Diagnosis [facility] [address] [place] [address] 10/20/2023 Hermes Guzman Plan Of Treatment No Information Progress Notes * AVA GLAARZADOB:1960 (64 yo M)Acc No.[id number]:10/20/2023 Progress Notes Patient: AVA KATE Provider: Yazan Guzman MD :1960 A ge:63 Y S ex:Male Date:10/20/2023 Address:[address] [id number] Pcp:Yariel Lopez (RETIRED )MD Subjective: * Chief Complaints: * P atient presents today for a colon screening * The named appointment provid er may or may not be the originator of this progress note, and it is not deemed complete until electronically signed by the appointment provider. Sign off status: Pending * Provider: Yazan Guzman MD Date: 0 10/20/2023 Generated for Printi ng/Fajenniferg/eTransmitting on: 1 05/02/2024 09:42 AM EST
--- OUTSIDE RECORDS SUMMARY | 2024-02-10 10:40 | XMS_ITS ---
Author Organization [facility] Address [address] [place] [address] Care Team Providers Care Bench Molder Apprentice Name Role Phone John (RETIRED) Yariel ANDERSON Primary Care Provide Hermes Arias [phone] REASON FOR VISIT COLON SCREENING Encounters Encounter Location Date Provider Diagnosis [facility] [address] [place] [address] 02/10/2024 Hermes Guzman Plan Of Treatment No Information Progress Notes * AVA GALARZADOB:1960 (64 yo M)Acc No.[id number]:02/10/2024 Progress Notes Patient: AVA KATE Provider: Yaazn Guzman MD :1960 A ge:63 Y S ex:Male Date:02/10/2024 Address: [address] [facility] Pcp:Yariel Lopez (RETIRED )MD Subjective: * Chief Complaints: * C OLON SCREENING * The named appointment provid er may or may not be the originator of this progress note, and it is not deemed complete until electronically signed by the appointment provider. Sign off status: Pending * Provider: Yazan Guzman MD Date: 04/12/2023 Generated for Lopez zapata/Elizabeth/eTransmitting on: 05/02/2024 09:42 AM EST
--- OUTSIDE RECORDS SUMMARY | 2024-06-02 05:40 | XMS_ITS ---
Author Organization [facility] Address [address] [place] [address] Care Team Providers Care Land Manager Name Role Phone John (RETIRED) Yariel ANDERSON Primary Care Provide Hermes Arias [phone] REASON FOR VISIT Patient presents today for a COLON SCREENING Encounters Encounter Location Date Provider Diagnosis [facility] [address] [place] [address] 06/02/2024 Hermes Guzman Plan Of Treatment No Information Progress Notes * AVA GALARZADOB:1960 (64 yo M)Acc No.[id number]:06/02/2024 Progress Notes Patient: AVA KATE Provider: Yazan Guzman MD :1960 A ge:63 Y S ex:Male Date:06/02/2024 [address] [id number] Pcp:Yariel Lopez (RETIRED )MD Subjective: * Chief [...] 06/02/2024 Generated for Printi ng/Fajenniferg/eTransmitting on: 1 05/02/2024 09:42 AM EST
--- OUTSIDE RECORDS SUMMARY | 2025-03-01 09:42 | XMS_ITS | Clinical Summary ---
Author Organization [facility] Address [address] [place] [address] Phone Care Team Providers Care Auto Service Instructor Name Role Phone Yariel Lopez MD Primary Care Provider [phone] Medications diclofenac (VOLTAREN) 1 % topical gel [...] Insurance [place] - [place] Care Teams Auto Service Instructor Relationship Specialty Start Date End Date Yariel Lopez MD [address] [place] [address] Dr Mauricio [place] PCP - General Internal Medicine 01/29/24
--- OUTSIDE RECORDS SUMMARY | 2025-03-01 09:43 | XMS_ITS | Clinical Summary ---
Author Organization [facility] Address [address] [place] [id number] Phone Care Team Providers Care Loft Worker Head Name Role Phone Yariel Lopez MD Primary [...] topic Medical Devices Not on file Insurance [facility] Care Teams Loft Worker Head Relationship Specialty Start Date End Date Yariel Lopez MD [address] [place] [address] [place] [id number] PCP - General Internal Medicine 04/11/23 Additional Source Comments The information contained in this document represents components of the legal health record. It is not the complete legal health record.[facility]
--- OUTSIDE RECORDS SUMMARY | 2025-03-01 09:43 | XMS_ITS | Patient Health Record ---
Author Organization [facility] Address [address] [place] [address] Care Team Providers Care Beehive Kiln Charcoal Burner Name Role Phone John (RETIRED) Yariel ANDERSON Primary Care Provide r Unavailable Hermes Guzman Unavailable [phone] Reason For Referral No Information Medications Medication [...] Info Options Details Miscellaneous: Marital status: Occupation: [employer] in [place] Section Notes: Nonsmoker; alcohol abuse in the past--now just occasional wine Nonsmoker; Drinks 2-3 times per week Problems Problem Type SNOMED Code ICD Code Onset Dates Problem Status W/U Status Risk Notes Problem Screening for malignant neoplasm of colon (388714547) Encounter for screening for malignant neoplasm of colon (Z12.11) Active confirmed Problem Recinos's esophagus (709454127) Recinos's esophagus without dysplasia (K22.70) Active confirmed Problem Gastroesophageal reflux disease (849486578) Gastroesophageal reflux disease, esophagitis presence not specified (K21.9) Active confirmed Problem Coffee ground emesis (12923357) Coffee ground emesis (K92.0) Active confirmed Encounters Encounter Location Date Provider Diagnosis [facility] [address] [place] [phone] 06/01/2024 Hermes Guzman [facility] [address] [place] [phone] 11/02/2024 Hermes Guzman Plan Of Treatment Future Test Test Name Order Date UPPER GI ENDOSCOPY 04/21/2014 COLONOSCOPY 04/21/2014 UPPER GI ENDOSCOPY 08/03/2019 Medical (General) History Medical History History ICD Code HTN Denies [place],DM,CVA,Lung disease,renal dise ase EGD and Colonoscopy at age 49 [address] Harris ek--reports that these were negative GERD-EGD [id number] ed HH, small area of Recinos's without dysplasia, no esophagitis; normal duodenal biopsies Anxiety Gout Colonoscopy 05/2014-negative Surgical History Surgery Date(Month/Year) knee surgery nose surgery
--- NOTE | 2025-03-01 10:07 | MHC.OFFVIS ---
Intake Visit Reasons: Cerebral infarction Allergies codeine Adverse Reaction (Mild, Verified 02/14/25 14:24) Nausea Penicillins Adverse Reaction (Mild, Verified 02/14/25 14:24) Nausea HPI Comments Details: This is a 64-year-old left-hand dominant male patient with a past medical history of hypertension, hyperlipidemia, and significant alcohol use in the past was seen in November of 2024 at [facility]. He has extensive ischemic lesions in brain of small vessel disease type and small to medium size vessel type causing multiple small to medium size lacunar bilateral infarcts. MRI also showed ischemic/gliotic lesions in central jason. He is presenting for follow-up after a stroke. He reports having a stroke in November, for which he was admitted in late December or early January. He states that a scan revealed he had numerous previous strokes he was unaware of, and the November event was the one where he knew something was wrong. The imaging also led to a diagnosis of mild Parkinson's disease. He reports taking carbidopa-levodopa for this condition. The patient notes that he feels too wobbly when walking. The patient has a history of binge drinking but reports he has not had a drink in over a year. He also reports a history of arthritis. His sleep has never been good, his mood has been up and down lately, and he has therapy scheduled to begin in March. [facility] Medical History (Updated 03/01/25 @ 10:15 by Kristyn Flood MD) Cerebral infarction Dizziness LUE weakness CKD stage 3a, GFR 45-59 ml/min GERD with esophagitis Hypertension Hyperlipidemia Surgical History (Updated 02/13/25 @ 16:32 by Ashli Galindo) History of colonoscopy (~06/05/14) Social History Household Members: None Housing: House Patient Tobacco Use Status: Never used Tobacco e-Cigarette/Vaping Use: Never Used Second Hand Smoke Exposure: Yes service: No Current occupational status: employed and retired Current occupation: [employer] Review of [employer] Narrative Constitutional:? Complain of fatigue HEENT:?No headache, vision changes, hearing loss, nasal congestion, sore throat. Cardiovascular:?No chest pain, palpitations, orthopnea, PND, or leg swelling. Respiratory:?No cough, shortness of breath, wheezing, or hemoptysis. Gastrointestinal:?No nausea, vomiting, abdominal pain, diarrhea, or constipation. Genitourinary:? Complain of frequent urination Musculoskeletal:?No joint pain, stiffness, weakness, or muscle aches. Neurological:? Complain of difficulty walking and weakness. Psychiatric:?No anxiety, depression, mood swings, sleep disturbance, or hallucinations. Endocrine:?No heat/cold intolerance, polydipsia, polyuria, or hair/skin changes. Hematologic/Lymphatic:?No easy bruising, bleeding, or lymphadenopathy. Integumentary (Skin):?No rash, lesions, itching, or color changes. Allergic/Immunologic:?No seasonal allergies, hives, or recurrent infections. Physical Exam Neuro Other: Mental Status: Alert and oriented to person, place, and time. Normal attention. Normal spontaneous speech, fluency, and comprehension. Cranial Nerves: CN II: Visual mercado full to confrontation, visual acuity intact. CN III, IV, : Pupils equal, round, reactive to light and accommodation. Extraocular movements are normal. CN V: Facial sensation is normal. CN VII: Facial movements symmetrical. CN VIII: Hearing intact to bedside conversation is normal. CN IX, X: Palate elevates symmetrically. CN XI: Shoulder shrug and head turn symmetrical. CN XII: Tongue midline without atrophy or fasciculations. Extrapyramidal: Decreased facial expression blinking. Gqon-pe-oxyimsve hand cogwheeling rigidity. Gait: Mildly decreased arm swing. Speech: Normal; no dysarthria or tremor. Results Reviewed Results Reviewed: CTA NECK WITH CONTRAST (STROKE) CTA BRAIN WITH CONTRAST (STROKE) CLINICAL INFORMATION: Stroke like symptoms. COMPARISON: Correlated to ultrasound carotid Doppler dated January 20, 2019. TECHNIQUE: CTA of the head and neck was performed in the axial plane from the mediastinum to the skull vertex using 70 mL Omnipaque 350 intravenous contrast. Additional reformatted multiplanar images including maximum intensity projection MIP images are generated on the CT workstation. This CT examination was performed using dose optimization techniques as appropriate, variously including the following: *Automated exposure control *Adjustment of mA and/or kV according to patient size (this includes techniques or standardized protocols for targeted exams where dose is matched to indication/reason for exam; i.e. extremities or head) *Use of iterative reconstruction technique DLP: 1482 mGy centimeter. FINDINGS: The degree of stenosis determined by criteria similar to NASCET. Brain: No acute intracranial hemorrhage, mass effect, midline shift, hydrocephalus or herniation. Bilateral multifocal patchy and confluent subcortical and deep periventricular white matter hypodensities involving centrum semiovale and torres radiata. Multifocal old lacunar infarcts, right basal ganglia and left cingulate gyrus. Probable old lacunar infarct in the jason. Ward-white matter differentiation is normal. No gross abnormal enhancement in the intra-axial or the extra-axial compartment of the cranium. No acute fracture in the bony calvarium. Polypoid mucosal thickening and secretions, right maxillary sinus. Small retention cyst right ethmoid air cells. Pneumatized anterior clinoid processes, bilaterally. Tympanic cavities and mastoid cells are aerated. Pneumatized right petrous apex. Chest CTA: Normal enhancement pattern and caliber included aortic arch. No intimal flap. Neck CTA: Right CCA: Normal patency. No focal stenosis. No intimal flap. Right ICA: Retropharyngeal trajectory and tortuosity. Normal patency. No focal stenosis. No intimal flap. Left CCA: Tortuosity in the proximal segment. Normal patency. No focal stenosis. No intimal flap. Left ICA: Retropharyngeal trajectory. Normal patency. No focal stenosis. No intimal flap. V1/V2 segments: Tortuosity. Normal patency. No focal stenosis. No intimal flap. Origin from the subclavian arteries. Left vertebral artery slightly dominant. Brain CTA: Anterior cerebral circulation: ICAs: Normal patency. No focal stenosis. No abrupt cut off. ICA terminus is normal bilaterally. MCA's: Normal patency. No focal stenosis. No abrupt cut off. Bifurcation/trifurcation demonstrated no vascular irregularity. ACAs: Normal patency. No focal stenosis. No abrupt cut off. Anterior communicating artery is patent without vascular irregularity. Ophthalmic arteries are patent without vascular irregularity at the origin. Right posterior communicating artery is patent without gross irregularity there is a prominent infundibulum at the origin. Left posterior communicating artery is small and the origin is no fully evaluated. Posterior cerebral circulation: V3/V4 segments: Normal patency. No focal stenosis. No intimal flap. Left is dominant. Posterior inferior cerebellar arteries are patent without gross irregularity at the origin. Dolichoectatic basilar artery. Normal patency. No focal stenosis. No intimal flap. Superior cerebellar arteries are patent. claim adjuster: 2 focal high degree stenosis with reconstitution of the right P1 P2 segment. Moderate focal stenosis in the left P1 segment. CT/CT angio head neck IMPRESSION: High degree stenosis, right P1 and right P2 segments. Moderate degree stenosis, left P1 segment. No main cerebral artery occlusion or embolus. No dissection or high-grade stenosis in the vessels of the neck. [place] [id number] Magnetic Resonance Report Signed Patient: Bautista Clements MR#: [id number] : 1960 Acct:[id number] Age/Sex: 64 / M ADM Date: 12/01/24 Loc: [facility] 460-[address]: Dominique PASCUAL Ordering Physician: Dominique Haji Date of Service: 12/01/24 Procedure(s): MR head/brain wo con Accession Number(s): [id number] cc: Dominique Haji; Parminder Hawk MD~ Reason for Exam: left facial droop CLINICAL HISTORY: left facial droop MR Brain without gadolinium Comparison: CT/SR - CT HEAD NECK ANGIOGRAPHY WITH IV CONTRAST - 12/01/24 13:37 EDT Findings: No restricted diffusion. No intra-axial mass or hemorrhage. Jason and mesencephalon multiple lacunar foci of encephalomalacia. Right putamen lacunar encephalomalacia. No midline shift. No hydrocephalus. Vascular flow voids are intact. Orbital contents are unremarkable. Near-complete opacification of the right maxillary sinus. No focal bone lesion. Periventricular foci of increased T2 FLAIR signal. No acute ischemic event identified in DWI sequence. IMPRESSION: 1. No acute intracranial findings. 2. Multiple lacunar foci of encephalomalacia in jason, mesencephalon, and and single in the right putamen. 3. Periventricular microvascular ischemic disease. Multiple sclerosis has not been excluded. Clinical correlation suggested. 4. Right maxillary sinus disease. Assessment & Plan Assessment & Plan (1) Cerebral microvascular disease: Code(s): I67.89 - Other cerebrovascular disease Category: Medical (2) Cerebral infarction: Code(s): I63.9 - Cerebral infarction, unspecified Category: Medical Qualifiers: Cerebral infarction mechanism: unspecified mechanism Qualified Code(s): I63.9 - Cerebral infarction, unspecified (3) Central pontine myelinolysis: Comment: MRI brain WO at [facility] in Nov 2024: Extensive MVD, central pontine ischemic/gliotic lesions, mild to mod atrophy CTA brain and neck at [facility] in Nov 2024: b/o [employer]ER stenosis. 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 We discussed the diagnosis of mild Parkinson's disease, and I noted that his slowness and blinking are consistent with this condition. I recommended that he continue carbidopa-levodopa for Parkinson's disease and continue abstaining from alcohol to prevent further neurologic injury. I supported his plan to start therapy in March and informed him that due to his stroke history, I cannot clear him for driving at this time. Medications: New carbidopa-levodopa 25-100 mg (Sinemet) 1 tab orally TID ate 7am, 11am, 3pm; 270 tabs 1RF Coding Level of Care Code Est Pt Level 5 (21560) Diagnoses Cerebral microvascular disease I67.89 Cerebral infarction, unspecified mechanism I63.9 Cerebral infarction mechanism: unspecified mechanism Central pontine myelinolysis G37.2 Vascular parkinsonism G21.4 Intracranial atherosclerosis I67.2
== END 2025-03-01 10:24 | disposition home or self-care (01) ==
LOC: HO.HSM 09:37
PROVIDERS: PCP Student in an Organized Health Care Education/Training Program; Visit Provider Psychiatry & Neurology Neurology
DX: I67.89 Other cerebrovascular disease (principal); I63.9 Cerebral infarction, unspecified; G37.2 Central pontine myelinolysis; G21.4 Vascular parkinsonism; I67.2 Cerebral atherosclerosis
CPT/HCPCS: 99215

== ENCOUNTER → 2025-03-01 09:36 | Outpatient (BNVA) | payer MEDICARE, SELFPAY | PROVIDERS: PCP Student in an Organized Health Care Education/Training Program; Visit Provider Psychiatry & Neurology Neurology | DX: G37.2 Central pontine myelinolysis (principal); G21.4 Vascular parkinsonism; I67.2 Cerebral atherosclerosis; I67.89 Other cerebrovascular disease; I63.9 Cerebral infarction, unspecified; F10.11 Alcohol abuse, in remission; Z79.82 Long term (current) use of aspirin; I10 Essential (primary) hypertension; E78.5 Hyperlipidemia, unspecified; Z09 Encounter for follow-up examination after completed treatment for conditions other than malignant neoplasm | CPT/HCPCS: 99212 ==